=== PATIENT | female | born 1955 | race Caucasian/White ===

== ENCOUNTER 2023-03-19 10:10 | Outpatient (CLI) | payer MEDICARE, OTHER, SELFPAY ==
[2023-03-19 10:42] LABS: Basophils Absolute Auto 0.1 K/mm3 (0.0-0.1); Basophils Percent Auto 0.8 % (0.2-1.2); Eosinophils Absolute Auto 0.1 K/mm3 (0-0.3); Eosinophils Percent Auto 0.8 % (0-4.4); Hematocrit 31.2 % (37.0-47.0); Hemoglobin 8.2 g/dL (12.0-15.0); Immature Granulocyte Absolute 0.05 K/mm3 (0.00-0.031); Immature Granulocyte Percent A 0.5 % (0-0.5); Immature Platelet Fraction Pct 6.6 % (0.9-11.2); Lymphocytes Absolute Auto 1.08 K/mm3 (0.9-3.2); Lymphocytes Percent Auto 11.1 % (18.3-44.2); Mean Corpuscular HGB Conc 26.3 g/dl (32-36); Mean Corpuscular Hemoglobin 17.5 pg (26-34); Mean Corpuscular Volume 66.5 fl (80-100); Mean Platelet Volume 10.4 fl (7.4-10.4); Monocytes Absolute Auto 0.6 K/mm3 (0.1-0.6); Monocytes Percent Auto 6.5 % (2.6-8.5); Neutrophils Absolute Auto 7.8 K/mm3 (1.3-6.7); Neutrophils Percent Auto 80.3 % (45.5-73.1); Platelet Count Result 807 k/mm3 (150-375); Red Blood Count 4.69 M/mm3 (4.2-5.4); Red Cell Distribution Width 17.9 % (11.5-14.5); White Blood Count 9.7 K/mm3 (4.5-10.0)
[2023-03-19 10:43] LABS: Hypochromasia 2+ (NORMAL); Ovalocytes 1+ (NORMAL); Platelet Estimate Increased (Adequate); Schistocytes None Seen (NORMAL)
[2023-03-19 10:44] LABS: Anisocytosis 1+ (NORMAL); Poikilocytosis 1+ (NORMAL)
[2023-03-19 15:22] LABS: Alanine Aminotransferase 35 U/L (6-35); Albumin Level 4.7 g/dL (3.5-5.1); Alkaline Phosphatase 155 U/L (38-126); Anion Gap 11 mmol/L (8-16); Aspartate Amino Transferase 48 U/L (14-36); Bilirubin,Total 0.4 mg/dL (0.2-1.3); Blood Urea Nitrogen 18 mg/dL (7-17); Calcium 9.8 mg/dL (8.4-10.2); Carbon Dioxide 22 mmol/L (22-30); Chloride 104 mmol/L (98-107); Estimated Glomerular Filt Rate > 60; Glucose 107 mg/dL (65-110); Lactate Dehydrogenase 189 U/L (120-246); Potassium 4.9 mmol/L (3.4-5.0); Sodium 137 mmol/L (137-145)
[2023-03-19 16:11] LABS: Iron 21 ug/dL (37-170)
[2023-03-19 16:28] LABS: Folic Acid > 20.0 ng/mL (2.76->20); Percent Iron Saturation 4 % (20-50)
[2023-03-19 16:49] LABS: Ferritin 4.55 ng/mL (11.1-264)
== END 2023-03-19 10:11 | disposition home or self-care (01) ==
LOC: ANHLAB 10:12
PROVIDERS: Visit Provider Internal Medicine Hematology & Oncology
DX: D64.9 Anemia, unspecified (principal)
CPT/HCPCS: 36415; 80053; 82607; 82728; 82746; 83540; 83550; 83615; 85025; 85055

== ENCOUNTER 2023-03-21 00:14 | Day surgery (SDC) | payer MEDICARE, OTHER, SELFPAY ==
[2023-03-12 13:11] VITALS: BMI 19.1
--- NOTE | 2023-03-21 08:16 | P.PNAN_ITS ---
Anes - Initial Pre Proc Eval Procedure: Operation Date: 03/21/23 11:30 Proposed Procedures p Colonoscopy - Reese Morgan MD Date/Time: 03/21/23 08:16 Surgeon: Reese Morgan MD Pre Op Diagnosis: Iron Deficiency Anemia Patient Data Age: 67 Gender: F Height: 1.68 m Weight: 53.8 kg Allergies Allergy/AdvReac Type Severity Reaction Status Date / Time No Known Allergies Allergy Verified 03/21/23 10:29 Home Medications Medication Instructions Recorded Confirmed Type naproxen 220 mg-diphenhydramine 25 1 tablet PO HS PRN other 03/12/23 03/21/23 History mg tablet (Aleve PM) Patient hx anesthesia problems: none Family hx anesthesia problems: none Results Review: All pre-operative results and documents have been reviewed as part of the pre- operative evaluation. [facility] Past Medical History Medical History (Updated 03/21/23 @ 08:17 by Roshan Woodson MD) Anemia Social History Social History Smoking packs per day: 1 Smoking cigarettes per day: 20.0 Years smoked: 20 Smoking pack-years: 20.00 Smoking status: Former smoker Tobacco type: cigarettes Substance use type: does not use Living arrangements: with family Spiritual care concerns: No Anes - Eval Final PreProcedure Day of Procedure 03/21/23 08:16 Patient weight: normal Heart: regular rate and rhythm Lungs: clear to auscultation and normal air movement Airway: Mallampati scale class II Neurological: alert and oriented Last oral intake: >/= 8 hours ASA classification: II Emergent: no Anesthetic plan: proceed Anesthesia type and monitoring: general GIVS Results Review: All pre-operative results and documents have been reviewed as part of the pre- operative evaluation. Informed Consent: The patient's anesthetic plan and its attendant risks and benefits were discussed with the patient/family/POA. Questions were solicited and answers provided to the satisfaction of the patient/family/POA.
[2023-03-21 10:25] VITALS: BP 91/47; PULSE 97; RESP 18; TEMP 36.5; O2SAT 99; BMI 18.6
[2023-03-21] MEDS: LACTATED RINGERS 1,000 ML 150 ML IV CONT (10:40)
--- NOTE | 2023-03-21 11:14 | PM.HPGS ---
History of Present Illness History of Present Illness Consent: Risks, benefits, and alternatives have been discussed and questions answered. Patient agrees to proceed with procedure. Chief complaint: Iron Deficiency Anemia Narrative: Audrey Trent is a 67 year old female Who has been found to be anemic. Her hemoglobin is 8.2 and MCV is only 66. She is also deficient in iron. She does not see blood in her stools. Her last colonoscopy was 15 years ago. Review of Systems Review of Systems: All systems reviewed & are unremarkable except as noted in HPI and below PMFSH Past Medical History Medical History (Updated 03/21/23 @ 11:15 by Reese Morgan MD) Anemia Social History Social History Smoking packs per day: 1 Smoking cigarettes per day: 20.0 Years smoked: 20 Smoking pack-years: 20.00 Smoking status: Former smoker Tobacco type: cigarettes Substance use type: does not use Living arrangements: with family Spiritual care concerns: No Meds Home Medications and Allergies Home Medications Medication Instructions Recorded Confirmed Type naproxen 220 mg-diphenhydramine 25 1 tablet PO HS PRN other 03/12/23 03/21/23 History mg tablet (Aleve PM) Allergies Allergy/AdvReac Type Severity Reaction Status Date / Time No Known Allergies Allergy Verified 03/21/23 10:29 Vital Signs Vital Signs - 24 hr 03/21/23 10:25 Temperature 36.5 C Pulse Rate 97 Respiratory Rate 18 Blood Pressure 91/47 L Pulse Oximetry 99 Oxygen Delivery Room Air Exam Resp: Auscultation: clear to auscultation bilaterally Cardio: Rate: regular rate Rhythm: regular rhythm GI: GI Palp: Yes Soft to palpation and No Tenderness to palpation present (GI) Assessment and Plan Assessment and plan (1) Iron deficiency anemia: Code(s): D50.9 - Iron deficiency anemia, unspecified Status: Acute Assessment and Plan: Colonoscopy with possible biopsy or polypectomy or cautery or injection of substances.
[2023-03-21 11:57] VITALS: BP 98/47; PULSE 87; RESP 20; O2SAT 98
[2023-03-21 12:07] VITALS: BP 91/51; PULSE 83; RESP 19; O2SAT 100
[2023-03-21 12:17] VITALS: BP 104/59; PULSE 86; RESP 18; O2SAT 98
== END 2023-03-21 12:25 | disposition home or self-care (01) ==
PROVIDERS: PCP Family Medicine; Visit Provider Internal Medicine Gastroenterology
PROC: 0DJD8ZZ Inspection of Lower Intestinal Tract, Via Natural or Artificial Opening Endoscopic (ICD-10-PCS; CPT 45378; principal; 2023-03-21 11:30)
DX: Z12.11 Encounter for screening for malignant neoplasm of colon (principal); K64.8 Other hemorrhoids; K57.30 Diverticulosis of large intestine without perforation or abscess without bleeding; D50.9 Iron deficiency anemia, unspecified; Z87.891 Personal history of nicotine dependence
CPT/HCPCS: G0121; J2704; J7120

== ENCOUNTER 2023-03-26 08:56 | Outpatient (CLI) | payer MEDICARE, OTHER, SELFPAY ==
[2023-03-31 16:57] LABS: Exon 14; Gene JAK2; JAK2 V617F Mutation Detected (Not Detected); Mutation Type missense; Specimen Source Blood
== END 2023-03-26 08:57 | disposition home or self-care (01) ==
LOC: ANHLAB 08:59
PROVIDERS: PCP Family Medicine; Visit Provider Internal Medicine
DX: D47.3 Essential (hemorrhagic) thrombocythemia (principal); D64.9 Anemia, unspecified
CPT/HCPCS: 36415; 81270

== ENCOUNTER 2023-04-07 00:31 | Day surgery (SDC) | payer MEDICARE, OTHER, SELFPAY ==
[2023-04-02 11:53] VITALS: BMI 18.6
[2023-04-07 12:50] VITALS: BP 114/89; PULSE 91; RESP 18; TEMP 36.2; O2SAT 94
[2023-04-07] MEDS: LACTATED RINGERS 1,000 ML 150 ML IV CONT (12:58)
--- NOTE | 2023-04-07 13:31 | PM.HPGS ---
History of Present Illness History of Present Illness Consent: Risks, benefits, and alternatives have been discussed and questions answered. Patient agrees to proceed with procedure. Chief complaint: Iron Deficiency Anemia Narrative: Audrey Trent is a 67 year old female With iron deficiency anemia. A recent colonoscopy did not reveal any source for blood loss. Her hemoglobin is 8.2 an MCV is 66. Review of Systems Review of Systems: All systems reviewed & are unremarkable except as noted in HPI and below PMFSH Past Medical History Medical History Anemia Social History Social History Smoking packs per day: 1 Smoking cigarettes per day: 20.0 Years smoked: 20 Smoking pack-years: 20.00 Smoking status: Former smoker Tobacco type: cigarettes Substance use: never Substance use type: does not use Living arrangements: with family Spiritual care concerns: No Meds Home Medications and Allergies Home Medications Medication Instructions Recorded Confirmed Type naproxen 220 mg-diphenhydramine 25 1 tablet PO HS PRN other 03/12/23 04/02/23 History mg tablet (Aleve PM) Allergies Allergy/AdvReac Type Severity Reaction Status Date / Time No Known Allergies Allergy Verified 04/07/23 12:49 Vital Signs Vital Signs - 24 hr 04/07/23 12:50 Temperature 36.2 C L Pulse Rate 91 Respiratory Rate 18 Blood Pressure 114/89 Pulse Oximetry 94 Oxygen Delivery Room Air Exam Const: General: alert Orientation/consciousness: patient oriented x3 Resp: Auscultation: clear to auscultation bilaterally Cardio: Rhythm: regular rhythm GI: GI Palp: Yes Soft to palpation and No Tenderness to palpation present (GI) Neuro: General: patient oriented x3 Assessment and Plan Assessment and plan (1) Iron deficiency anemia: Code(s): D50.9 - Iron deficiency anemia, unspecified Status: Acute Assessment and Plan: EGD with possible biopsy or dilatation or cautery.
--- NOTE | 2023-04-07 13:40 | WPDANESEPPF ---
Anes - Initial Pre Proc Eval Procedure: Operation Date: 04/07/23 13:30 Proposed Procedures p Esophagogastroduodenoscopy - Reese Morgan MD Date/Time: 04/07/23 13:40 Surgeon: Reese Morgan MD Pre Op Diagnosis: Iron Deficiency Anemia Patient Data Age: 67 Gender: F Height: 1.68 m Weight: 53.5 kg Last Vital Signs Temp 36.2 C L 04/07/23 12:50 Pulse 91 04/07/23 12:50 Resp 18 04/07/23 12:50 BP 114/89 04/07/23 12:50 Pulse Ox 94 04/07/23 12:50 O2 Del Method Room Air 04/07/23 12:50 Allergies Allergy/AdvReac Type Severity Reaction Status Date / Time No Known Allergies Allergy Verified 04/07/23 12:49 Home Medications Medication Instructions Recorded Confirmed Type naproxen 220 mg-diphenhydramine 25 1 tablet PO HS PRN other 03/12/23 04/02/23 History mg tablet (Aleve PM) Patient hx anesthesia problems: none Family hx anesthesia problems: none Results Review: All pre-operative results and documents have been reviewed as part of the pre-operative evaluation. [facility] Past Medical History Medical History Anemia Social History Social History Smoking packs per day: 1 Smoking cigarettes per day: 20.0 Years smoked: 20 Smoking pack-years: 20.00 Smoking status: Former smoker Tobacco type: cigarettes Substance use: never Substance use type: does not use Living arrangements: with family Spiritual care concerns: No Anes - Eval Final PreProcedure Day of Procedure 04/07/23 13:40 Patient weight: normal Heart: regular rate and rhythm Lungs: decreased breath sounds Airway: Mallampati scale class II Neurological: alert and oriented Last oral intake: >/= 8 hours ASA classification: II Emergent: no Anesthetic plan: proceed Anesthesia type and monitoring: general GIVS and standard monitoring Results Review: All pre-operative results and documents have been reviewed as part of the pre-operative evaluation. Informed Consent: The patient's anesthetic plan and its attendant risks and benefits were discussed with the patient/family/POA. Questions were solicited and answers provided to the satisfaction of the patient/family/POA.
[2023-04-07 13:57] VITALS: BP 97/51; PULSE 84; RESP 20; O2SAT 99
[2023-04-07 14:07] VITALS: BP 100/53; PULSE 81; RESP 19; O2SAT 98
[2023-04-07 14:17] VITALS: BP 108/57; PULSE 77; RESP 19; O2SAT 97
== END 2023-04-07 14:39 | disposition home or self-care (01) ==
PROVIDERS: PCP Family Medicine; Visit Provider Internal Medicine Gastroenterology
PROC: 0DJ08ZZ Inspection of Upper Intestinal Tract, Via Natural or Artificial Opening Endoscopic (ICD-10-PCS; CPT 43235; principal; 2023-04-07 13:30)
DX: K21.9 Gastro-esophageal reflux disease without esophagitis (principal); D50.9 Iron deficiency anemia, unspecified; Z87.891 Personal history of nicotine dependence
CPT/HCPCS: 43239; 88305; J2704; J7120

== ENCOUNTER 2023-04-08 00:04 | Day surgery (SDC) | payer MEDICARE, OTHER, SELFPAY ==
[2023-04-07 15:43] VITALS: BMI 18.6
--- NOTE | ~2023-04-08 | BM_ITS ---
EXAMINATION: CCL bone marrow asp w bx diag DATE: 04/08/2023 09:26 INDICATION: Thrombocytosis. TECHNIQUE: A time-out was performed to verify the patient's name, date of , and procedure to b e performed. The procedure including the risks, benefits, and alternatives was discussed with the pat ient. Risks discussed included bleeding and infection. The patient understood the risks and agreed to proceed. The skin overlying the left ilium was prepped and draped in usual sterile fashion. Anesth etic was administered with 1% lidocaine subcutaneously. Moderate sedation was achieved with 1 mg Vers ed IV and 50 mcg fentanyl IV. An 11 gauge needle was inserted into the ilium with fluoroscopic mae nce. Bone marrow was aspirated. An 8 gauge needle was then inserted into the ilium with fluoroscopic guidance. A core bone marrow biopsy was obtained. There were no immediate complications. Fluoroscopy exposure time was 0.0 minutes. The total number of images was 12. FINDINGS: Real-time fluoroscopy demonstrates a marker overlying the left posterior superior iliac spi ne. IMPRESSION: 1. Fluoro-guided bone marrow aspiration. 2. Fluoro-guided bone marrow core biopsy. Reviewed, dictated and finalized at location A.
[2023-04-08 07:42] VITALS: BP 115/60; PULSE 83; RESP 16; TEMP 36.9; O2SAT 94; BMI 18.6
[2023-04-08 07:56] LABS: Basophils Absolute Auto 0.1 K/mm3 (0.0-0.1); Basophils Percent Auto 0.9 % (0.2-1.2); Eosinophils Absolute Auto 0.2 K/mm3 (0-0.3); Eosinophils Percent Auto 2.5 % (0-4.4); Hematocrit 37.6 % (37.0-47.0); Hemoglobin 10.3 g/dL (12.0-15.0); Immature Granulocyte Absolute 0.02 K/mm3 (0.00-0.031); Immature Granulocyte Percent A 0.3 % (0-0.5); Lymphocytes Absolute Auto 1.26 K/mm3 (0.9-3.2); Lymphocytes Percent Auto 15.8 % (18.3-44.2); Mean Corpuscular HGB Conc 27.4 g/dl (32-36); Mean Corpuscular Hemoglobin 21.1 pg (26-34); Mean Corpuscular Volume 77.2 fl (80-100); Mean Platelet Volume 9.3 fl (7.4-10.4); Monocytes Absolute Auto 0.6 K/mm3 (0.1-0.6); Monocytes Percent Auto 7.4 % (2.6-8.5); Neutrophils Absolute Auto 5.9 K/mm3 (1.3-6.7); Neutrophils Percent Auto 73.1 % (45.5-73.1); Platelet Count Result 786 k/mm3 (150-375); Red Blood Count 4.87 M/mm3 (4.2-5.4)
[2023-04-08 08:02] LABS: Platelet Estimate Increased (Adequate)
[2023-04-08 08:03] LABS: Anisocytosis 2+ (NORMAL); Hypochromasia 2+ (NORMAL); Ovalocytes 1+ (NORMAL); Schistocytes None Seen (NORMAL); Target Cells 1+ (NORMAL)
[2023-04-08 08:05] LABS: Prothrombin Time 13.9 Seconds (11.1-14.7)
--- NOTE | 2023-04-08 08:49 | P.SEDATION_ITS ---
Moderate Sedation Note-Pt Data Patient Data Diagnosis: Thrombocytosis. Present Complaint: Thrombocytosis. Procedure to be performed/Plan: Fluoro-guided bone marrow biopsy of ilium. Allergies Allergy/AdvReac Type Severity Reaction Status Date / Time No Known Allergies Allergy Verified 04/07/23 15:43 Home Medications Medication Instructions Recorded Confirmed Type No Home Medications 04/07/23 04/07/23 History Sedation/Anesthesia: No previous sedation/anesthesia problems (including family history). [facility] Past Medical History Medical History Anemia Social History Social History Smoking packs per day: 1 Smoking cigarettes per day: 20.0 Years smoked: 20 Smoking pack-years: 20.00 Smoking status: Never smoker Tobacco type: cigarettes Second hand tobacco smoke exposure: No Alcohol intake: never Substance use: never Substance use type: does not use Living arrangements: with family Spiritual care concerns: No Mod Sed Physical Exam Physical Exam Pre Procedural Exam: Normal: Appearance, Lungs, Heart Rate, Heart Rhythm and Abdomen Hours since solid foods: 11 Hours since liquid intake: 10 Mallampati Classification: class 1 Internal Medicine - PN: Obj Da Vital Signs Vital Signs: Vital Signs - 24 hr 04/08/23 07:42 Temperature 36.9 C Pulse Rate 83 Respiratory Rate 16 Blood Pressure 115/60 Pulse Oximetry 94 Oxygen Delivery Room Air Labs 04/08/23 07:39 Labs: Laboratory Results - last 24 hr 04/08/23 07:39 WBC 8.0 RBC 4.87 Hgb 10.3 L Hct 37.6 MCV 77.2 L MCH 21.1 L MCHC 27.4 L RDW TNP Plt Count 786 H MPV 9.3 Immature Gran % (Auto) 0.3 Neut % (Auto) 73.1 Lymph % (Auto) 15.8 L Grimes % (Auto) 7.4 Eos % (Auto) 2.5 Baso % (Auto) 0.9 Lymph # (Auto) 1.26 Grimes # (Auto) 0.6 Eos # (Auto) 0.2 Baso # (Auto) 0.1 Abs Immat Gran (auto) 0.02 Absolute Neuts (auto) 5.9 Absolute Nucleated RBC 0.0 Nucleated RBC % 0.0 Platelet Estimate Increased Hypochromasia 2+ Anisocytosis 2+ Target Cells 1+ Ovalocytes 1+ Schistocytes None seen PT 13.9 INR 1.0 ASA Classification/Sedation ASA Classification/Sedation ASA Class: II Emergent: No Risks: Risks, benefits and alternatives explained and patient/family accepted plan for sedation. Patient re-evaluated immediately prior to sedation.
[2023-04-08 09:22] VITALS: BP 105/60; PULSE 74; RESP 14; TEMP 36.6; O2SAT 94
[2023-04-08 09:30] VITALS: BP 103/57; PULSE 74; RESP 14; O2SAT 92
[2023-04-08 09:45] VITALS: BP 101/57; PULSE 76; RESP 16; O2SAT 93
[2023-04-08 10:00] VITALS: BP 107/52; PULSE 72; RESP 17; O2SAT 93
[2023-04-08 10:15] VITALS: BP 109/60; PULSE 83; RESP 16; O2SAT 92
== END 2023-04-08 10:30 | disposition home or self-care (01) ==
PROVIDERS: PCP Family Medicine; Visit Provider Radiology Diagnostic Radiology
DX: D75.839 Thrombocytosis, unspecified (principal); D50.9 Iron deficiency anemia, unspecified
CPT/HCPCS: 36415; 38222; 85025; 85610; 88184; 88185; 88305; 88311; 88313; J1642; J2250; J3010; J7040

== ENCOUNTER 2023-05-13 12:33 | Outpatient (CLI) | payer MEDICARE, OTHER, SELFPAY ==
--- NOTE | ~2023-05-13 | CT_ITS ---
CT of the Abdomen and Pelvis: Indication: Weight loss Technique: 2.5 mm axial scans were obtained through the abdomen and pelvis following intravenous adm inistration of 100 cc of Omnipaque 350. Dose reduction technique was used on this scan by utilizing a utomated exposure control and iterative reconstruction technique. The dose-length product (DLP) was 2 23.01 mGy-cm. Findings: Scans through the lung bases demonstrate 5.5 mm lingular nodule. The liver, spleen, pancreas, gallbladder, adrenals and kidneys are within normal limits. There are at herosclerotic calcifications of the aorta. No lymphadenopathy. No bowel obstruction or bowel wall thickening. There is no evidence to suggest acute appendicitis. Images through the pelvis were performed. Urinary bladder unremarkable. No adnexal mass evident. Trac e pelvic ascites present. Impression: 5.5 mm lingular nodule. According to Fleischner Society criteria, for a low-risk patient, no further follow-up required. For a high-risk patient, consider 12 month follow-up CT. Trace pelvic ascites, nonspecific. Reviewed, dictated and finalized at location . Impression: 5.5 mm lingular nodule. According to Fleischner Society criteria, for a low-ris k patient, no further follow-up required. For a high-risk patient, consider 12 month follow-up CT. Trace pelvic ascites, nonspecific.
[2023-05-13 12:50] LABS: Estimated Glomerular Filt Rate 32
== END 2023-05-13 12:34 | disposition home or self-care (01) ==
PROVIDERS: PCP Family Medicine; Visit Provider Internal Medicine Gastroenterology
DX: R63.4 Abnormal weight loss (principal); R91.1 Solitary pulmonary nodule; R18.8 Other ascites
CPT/HCPCS: 74177; Q9967

== ENCOUNTER 2024-03-02 10:37 | Outpatient (CLI) | payer MEDICARE, OTHER, SELFPAY ==
--- NOTE | ~2024-03-02 | CT_ITS ---
EXAMINATION: CT soft tissue neck chest w DATE: 03/02/2024 11:21 INDICATION: Paralysis of vocal cords and larynx, unspecified. TECHNIQUE: Computed tomography (CT) of the neck and chest was performed with 75 mL Omnipaque-350 intr avenous contrast. Automated exposure control and iterative reconstruction technique were employed. Th e dose-length product was 477.87 mGy-cm. COMPARISON: CT abdomen and pelvis 05/13/2023 FINDINGS: CT NECK: There are likely changes of ocular lens replacement surgeries. There is an 18 x 15 mm left s upraclavicular lymph node. There is left-sided vocal cord paralysis. There are nodules in the thyroid measuring up to 7 mm, likely not clinically significant. There is mild cervical spondylosis. CT CHEST: There is mild scarring at the lung apices. There is severe emphysema. There is mild atelect asis bilaterally. There is a stable 6 mm nodule in the lingula, likely benign. No pleural effusion. T he heart size is normal. There are coronary artery calcifications. No pericardial effusion. There is a 3.7 x 2.2 x 9.7 cm mass in the anterior mediastinum measuring fluid attenuation. There is lymphaden opathy in the aorticopulmonary window measuring 3.7 x 2.5 cm. The liver demonstrates a nodular surfac e contour, consistent with cirrhosis. There is severe thoracic spondylosis. There is a chronic burst fracture of T11. IMPRESSION: 1. Left supraclavicular and aorticopulmonary window lymphadenopathy, consistent with metastatic disea se versus lymphoma. Ultrasound-guided core biopsy of the left supraclavicular lymph node is recommend ed. 2. 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 3. 9.7 x 3.7 x 2.2 cm cystic mass in the anterior mediastinum, which may be a thymic cyst or venous m alformation. 4. Severe emphysema. 5. Cirrhosis of the liver. Reviewed, dictated and finalized at location A. IMPRESSION: 1. Left supraclavicular and aorticopulmonary window lymphadenopathy, consistent with metastatic disease versus lymphoma. Ultrasound-guided core biopsy of the left supraclavicular lymph node is recommended. 2. Left-sided vocal cord paralysis secondary to aorticopulmonary window lymphad enopathy. 3. 9.7 x 3.7 x 2.2 cm cystic mass in the anterior mediastinum, which may be a t hymic cyst or venous malformation. 4. Severe emphysema. 5. Cirrhosis of the liver.
[2024-03-02 11:07] LABS: Estimated Glomerular Filt Rate 37
== END 2024-03-02 10:38 ==
PROVIDERS: PCP Family Medicine; Visit Provider Otolaryngology
DX: J38.00 Paralysis of vocal cords and larynx, unspecified (principal); R59.0 Localized enlarged lymph nodes; J43.9 Emphysema, unspecified; K74.60 Unspecified cirrhosis of liver; R91.8 Other nonspecific abnormal finding of lung field
CPT/HCPCS: 70491; 71260; Q9967

== ENCOUNTER 2025-01-12 10:27 | Outpatient (CLI) | payer MEDICARE, OTHER, SELFPAY ==
--- NOTE | ~2025-01-12 | XR_ITS ---
Lumbosacral Spine: AP and lateral views Clinical History: Abnormal weight loss Findings: The normal lordotic curve is maintained. The vertebral bodies and posterior elements are i ntact. The intervertebral disc spaces are preserved. There is mild to moderate facet arthropathy at L4-L5 and L5-S1. The sacroiliac joints are normally outlined. Impression: Facet arthropathy, as above. Reviewed, dictated and finalized at location M. Impression: Facet arthropathy, as above.
--- NOTE | ~2025-01-12 | XR_ITS ---
Thoracic spine: Clinical Indication: Weight loss AP and lateral views were performed. Right-sided Mediport in place. Mild compression deformity of T12 present. The intervertebral disc spa yi appear normal. Paravertebral soft tissues appear normal. Impression: Mild T12 compression deformity, age indeterminate. Reviewed, dictated and finalized at [facility]. Impression: Mild T12 compression deformity, age indeterminate.
--- OUTSIDE RECORDS SUMMARY | 2025-01-12 10:49 | XMS_ITS | Encounter Summary ---
Author Organization [facility] Address [address] [place] [address] Care Team Providers Care Assessment Expert Name Role Phone Eduin Ricks MD Primary Care Provider Encounter Details Date Type Department Care Team ([facility] Contact Info) Description 01/06/2025 Orders Only [facility] Oncology and Hematology - Samuel [address] [place] [address] Med Delatorre MD [facility] [employer] [address] [place] [id number] Social History Tobacco Use Types Packs/Day Years Used Date Smoking Tobacco: Former Cigarettes 1 30 0 10/30/1992 - 10/30/2022 Smokeless Tobacco: Never Alcohol Use Standard Drinks/Week Comments Not Currently 0 (1 standard drink = 0.6 oz pur e alcohol) Comments Unknown Sex and Gender Information Value Date Recorded Sex Assigned at Not on file Legal Sex Female 9:49 AM CDT Gender Identity Not on file Sexual Orientation Not on file documented as of this encounter Plan of Treatment Upcoming Encounters Date Type Department Care Team (Late Contact Info) Description 05/18/2025 11:15 AM CDT Office Visit [facility] Oncology and Hematology - Samuel [address] [place] [address] Med Delatorre MD [address] [place] [address] documented as of this encounter Procedures Procedure Name Priority Date/Time Associated Diagnosis Comments BASIC METABOLIC PANEL Routine 01/05/2025 10:28 AM CDT documented in this encounter Results * BASIC METABOLIC PANEL (01/05/2025 10:28 AM CDT) Blood Med Delatorre MD CHEMISTRY ORDERABLES Final Resu lt documented in this encounter Visit Diagnoses Not on filedocumented in this encounter Care Teams Assessment Expert Relationship Specialty Start Date End Date Eduin Ricks MD [address] [place] [id number] PCP - General Family Practice 03/19/23 documented as of this encounter
--- OUTSIDE RECORDS SUMMARY | 2025-01-12 10:49 | XMS_ITS | Encounter Summary ---
Author Organization [facility] Address [address] [place] [address] Care Team Providers Care Service Station Cashier Name Role Phone Unavailable Primary Care Provider Unavailabl e Encounter Details Date Type Department Care Team (Late st Contact Info) Description 04/09/2023 Lab Requisition [facility] - Pathology Lab [address] [place] [address] Anton Nettles MD [address] [place] [address] Illness, unspecified Social History Tobacco Use Types Packs/Day Years Used Date Smoking Tobacco: Never Assessed Comments Unknown Sex and Gender Information Value Date Recorded Sex Assigned at Not on file Legal Sex Female 11:30 AM CDT Gender Identity Not on file Sexual Orientation Not on file documented as of this encounter Plan of Treatment Not on file documented as of this encounter Procedures Procedure Name Priority Date/Time Associated Diagnosis Comments BONE MARROW BIOPSY (STL) Routine 04/08/2023 9:02 AM CDT Illness, unspecified documented in this encounter Results * BONE MARROW BIOPSY (STL) (04/08/2023 9:02 AM CDT) Case Report Bone Marrow Patholog y Report Case: [id number] Authorizing Provider: Anton Nettles MD Collected: 04/08/2023 09:02 AM Ordering Location: [facility] Lab Received: 04/09/2023 01:46 PM Pathologist: Gita Leonard MD Specimens: A) - Bone Marrow Clot, Left bone marrow aspirate B) - Bone Marrow Core, Left posterior hip 04/09/2023 3:43 PM CDT [facility] Final Diagnosis Bone marrow, aspirate, clot section, and core biopsy: - Normocellular marrow with maturing trilineage hematopoiesis and megakaryocytic hyperplasia. - See description. Peripheral blood smear: - Microcytic anemia and thrombocytosis. - See description. 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 04/09/2023 3:43 PM [facility] Peripheral Smear Description RBC: microcytic anemia. WBC: normal in number and morphology. Platelets: increased in number, normal morphology. 04/09/2023 3:43 PM [facility] Bone Marrow Aspirate Differential count (200 cells): 0% blasts, 55% maturing myeloid precursors, 35% erythroid progenitors, 3% monocytes, 3% eosinophils, 3% lymphocytes, 0% plasma cells. Specimen quality: adequate. Spicules: numerous. Trilineage Hematopoiesis: present. Myeloid:Erythroid ratio: normal. Myeloid Maturation: normal. Erythroid Maturation: normal. Megakaryocyte morphology: few hyperlobated forms present.. Storage iron (by special stain): markedly decreased. Sideroblastic iron (by special stain): no ring sideroblasts. 04/09/2023 3:43 PM [facility] Bone Marrow Core Biopsy and Clot Section Description Specimen quality: adequate with 1.7 cm of evaluable marrow. Cellularity: 50 % Trilineage Hematopoiesis: present. Myeloid to Erythroid ratio: normal. Myeloid maturation and localization: normal. Erythroid maturation and localization: normal. Megakaryocyte number: increased. Megakaryocyte distribution: small, loose clusters, and forms with hyperlobation. Lymphoid aggregates: absent. Bone trabeculae: normal. Blood vessels: normal. Plasma cells: normal. Clot section marrow particles: many. Clot section morphology: similar to core biopsy. 04/09/2023 3:43 PM [facility] Flow Cytometry Summary Bone marrow, flow cytometry ([id number]): - No clonal B-cell or increased blast population detected 04/09/2023 3:43 PM [facility] Clinical History Thrombocytosis, CHARLEY-2+ 04/09/2023 3:43 PM [facility] Materials Received Received are 20 slide(s) and 3 block(s) A1, A2, and B1 labeled [id number] along with a copy of the outside pathology report. The materials originate from [address] [place] [address]. All original materials are returned to the referring institution, along with a copy of our final report. 04/09/2023 3:43 PM CDT [facility] Pathologist Location at [facility] 04/09/2023 3:43 PM CDT [facility] Disclaimer The performance characteristics of all immunohistochemical and indirect immunofluorescence stains (if any) cited in this report were determined by the Histopathology Laboratory of [facility]. Some of these tests were developed by our own laboratory and have not been cleared or approved by the US Food and Drug Administration. The FDA does not require this test to go through premarket FDA review. These tests are used for clinical purposes. They should not be regarded as investigational or for research. This laboratory is certified under the Clinical Laboratory Improvement Amendments (CLIA) as qualified to perform high complexity clinical laboratory testing. This case has been personally reviewed and interpreted by the attending (teaching) pathologist. 04/09/2023 3:43 PM CDT [facility] Embedded Images 04/09/2023 3:43 PM CDT [facility] Pathology/Cytology BONE MARROW SPECIMEN / Unknown 04/08/2023 9:02 AM CDT 04/09/2023 1:46 PM CDT Miscellaneous samples (specimen) BONE MARROW SPECIMEN / Unknown 04/08/2023 9:02 AM CDT 04/09/2023 2:03 PM CDT us Anton Nettles MD LAB - PATHOLOGY/CYTOLOGY ORDERAB LES Final Result [facility] [address] [place] [address], [facility] [phone] documented in this encounter Visit Diagnoses Diagnosis Illness, unspecified documented in this encounter
--- OUTSIDE RECORDS SUMMARY | 2025-01-12 10:49 | XMS_ITS | Clinical Summary ---
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 Gender Identity Not on file Sexual Orientation Not on file Plan of Treatment Health Maintenance Due Date Last Done Comments Colorectal Cancer Screening Colonoscopy (10 Years) 1954 Hepatitis C 1972 DTaP, Tdap and Td Vaccines ( 1 - Tdap) 1973 Mammogram Screening 1994 Pneumococcal Vaccine: 50+ Ye ars (1 of 1 - PCV) 2004 Zoster Vaccines (1 of 2) 2004 Dexa Scan (General) 2019 COVID-19 Vaccine (2023-2 5 season) 2024 RSV Immunization or 60+ Years (1 - 1-dose 75+ series) 2029 Meningococcal B Vaccine Aged Out No l onger eligible based on patient's age to complete this topic Meningococcal Vaccine Aged Out No kd shobha eligible based on patient's age to complete this topic RSV Immunizations Under 20 Months Aged Out No longer eligible based on patient's age to complete this topic
--- OUTSIDE RECORDS SUMMARY | 2025-01-12 10:49 | XMS_ITS | Clinical Summary ---
Author Organization [facility] Address [address] [place] [address] Care Team Providers Care Hull Line Crew Member Name Role Phone Unavailable Primary Care Provider Unavailabl e Source Comments [facility],non-owned Affiliates and Associated Physician Practices is amultiple site organization consisting of ambulatory clinics and hospital sitesin [place], [place], [place]. This disclosure is being madepursuant to the Care Everywhere program and may not contain all information available regarding this patient. Last updated 18.[facility] [employer] Social History Tobacco Use Types Packs/Day Years Used Date Smoking Tobacco: Never Assessed Comments Unknown Sex and Gender Information Value Date Recorded Sex Assigned at Not on file Legal Sex Female 11:30 AM CDT Gender Identity Not on file Sexual Orientation Not on file Plan of Treatment Health Maintenance Due Date Last Done Comments BONE DENSITY TESTING 1954 COLOGUARD (AGES 45-75) - COL ON CA SCREENING 1954 COLON MONITORING 1954 COLONOSCOPY - COLON CA SCREENING 1954 CT COLONOGRAPHY - COLON CA SCREENING 1954 Colorectal Cancer Screening 1954 FIT - COLON CA SCREENING 1954 FLEX SIG - COLON CA SCREENING 1954 LIPID TESTING 1954 MAMMOGRAM 1954 MEDICARE AWV 12 MONTHS 1954 HEPATITIS C SCREENING 09/29/1972 DTAP/TDAP/TD VACCINES (1 - Tdap) 1973 PNEUMOCOCCAL VACCINE 50+ (1 of 1 - PCV) 2004 ZOSTER VACCINE (1 of 2) 2004 COVID-19 VACCINE (1 - 2023-2 5 season) 2024 DEPRESSION SCREENING 09/01/2024 INFLUENZA VACCINE (Season Ended) 2025 Respiratory Syncytial Virus (RSV) Vaccine Pt: or over 60 yrs (1 - 1-dose 75+ series) 2029 HEPATITIS B VACCINE Aged Out No longe r eligible based on patient's age to complete this topic HIB VACCINE Aged Out No longer eligi ble based on patient's age to complete this topic HPV VACCINE Aged Out No longer eligi ble based on patient's age to complete this topic MENINGOCOCCAL (Group B) VACC INE SHARED DECISION-MAKING Aged Out No longer eligibl e based on patient's age to complete this topic MENINGOCOCCAL GROUPS A/C/Y/W VACCINE Aged Out No longer eligible b ased on patient's age to complete this topic Insurance MEDICARE MEDICARE SUPPLEMENT PAYOR GENERIC MEDICARE
--- OUTSIDE RECORDS SUMMARY | 2025-01-12 10:49 | XMS_ITS | Encounter Summary ---
Author Organization [facility] Address [address] [place] [address] Care Team Providers Care Pie Maker Name Role Phone Unavailable Primary Care Provider Unavailabl e Encounter Details Date Type Department Care Team (Late st Contact Info) Description 04/10/2023 Lab Requisition [facility] - Pathology Lab [address] [place] [address] Anton Nettles MD [address] [place] [address] Illness, unspecified Social History Tobacco [...] on file documented as of this encounter Visit Diagnoses Diagnosis Illness, unspecified documented in this encounter
--- OUTSIDE RECORDS SUMMARY | 2025-01-12 10:49 | XMS_ITS | Encounter Summary ---
Author Organization [facility] Address [address] [place] [address] Care Team Providers Care Large Animal Veterinarian Name Role Phone Unavailable Primary Care Provider Unavailabl e Encounter Details Date Type Department Care Team (Late st Contact Info) Description 04/08/2023 Lab Requisition [facility] - Pathology Lab [address] [place] [address] Anton Nettles MD [address] [place] [address] Thrombocytosis, unspecified Social History Tobacco Use Types Packs/Day [...] Procedure Name Priority Date/Time Associated Diagnosis Comments FLOW CYTOMETRY BONE MARROW Routine 04/08/2023 9:02 AM CDT Thrombocytosis, unspecified documented in this encounter Results * FLOW CYTOMETRY BONE MARROW (04/08/2023 9:02 AM CDT) Case Report Flow Cytometry Case: [id number] Authorizing Provider: Anton Nettles MD Collected: 04/08/2023 09:02 AM Ordering Location: [facility] Pathology Lab Received: 04/08/2023 11:43 AM Pathologist: Gita Leonard MD Specimen: Bone Marrow 04/08/2023 1:33 PM CDT [facility] Final Diagnosis Bone marrow, flow cytometry: - No clonal B-cell or increased blast population detected 04/08/2023 1:33 PM CDT [facility] Flow Cytometry Interpretation The bone marrow specimen has a viability of 87%. The lymphocyte, dim CD45, monocyte, and granulocyte bradford are normal in relative proportion. Within the lymphocyte gate, there is no monotypic B-cell population identified (kappa: lambda ratio = 4:1). There is no expanded T-cell population seen. By CD34, 4% of all events analyzed are blasts. A bone marrow aspirate smear prepared from the flow cytometry specimen is reviewed for quality assurance representative purposes. 04/08/2023 1:33 PM [facility] Flow Cytometry Results Differential Result Comment Flow Cell Count /uL 102,400 Total Viability % 87.0 Lymphocytes % 15 Dim CD45 Region % 11 Monocytes % 9 Granulocytes % 65 04/08/2023 1:33 PM [facility] Reason for test Thrombocytosis, unspecified 04/08/2023 1:33 PM [facility] Client Specimen ID # [id number] 04/08/2023 1:33 PM [facility] Number of markers 10 were performed. A-2 Flow CD10 A-3 Flow CD13 A-5 Flow CD20 A-1 Flow CD5 A-4 Flow CD19 A-6 Flow CD33 A-7 Flow CD34 A-8 Flow CD45 A-9 [place]+CD19+ A-10 Lambda+CD19+ 04/08/2023 1:33 PM [facility] Pathologist Location at [facility] 04/08/2023 1:33 PM [facility] Disclaimer Test performed at [facility], [address] [place] [address], [id number]. *The established laboratory minimum viability is 70%. Values below the minimum may result in the failure to find an abnormal population of cells. This test was developed and its performance characteristics determined by the Flow Cytometry Laboratory. It has not been cleared by the [place] Food and Drug Administration (FDA). The FDA has determined that such clearance or approval is not necessary. This test is used for clinical purposes. It should not be regarded as investigational or for research. This laboratory is regulated under the Clinical Laboratory Improvement Amendments of 1998 (CLIA) as a qualified to perform high complexity clinical testing. 04/08/2023 1:33 PM CDT [facility] Embedded Images 3 1:33 PM CDT [facility] Pathology/Cytolo gy BONE MARROW SPECIMEN / Unknown 04/08/2023 9:02 AM CDT 04/08/2023 11:43 AM CDT us Anton Nettles MD LAB - PATHOLOGY/CYTOLOGY ORDERAB LES Final Result [facility] [address] [phone] documented in this encounter Visit Diagnoses Diagnosis Thrombocytosis, unspecified documented in this encounter
--- OUTSIDE RECORDS SUMMARY | 2025-01-12 10:49 | XMS_ITS | Encounter Summary ---
Author Organization [facility] Address [address] [place] [address] Care Team Providers Care Product Marketing Intern Name Role Phone Eduin Ricks MD Primary Care Provider Encounter Details Date Type Department Care Team ([facility] Contact Info) Description 01/05/2025 Orders Only [facility] Oncology and Hematology - Samuel [address] [place] [address] Med Delatorre MD [address] [place], [place] [address] [place] [phone] Social History Tobacco Use Types Packs/Day [...] Description 05/18/2025 11:15 AM CDT Office Visit [facility] Oncology and Hematology - Samuel [address] [place] [address] Med Delatorre MD [address] [place] [address] documented as of this encounter Procedures Procedure Name Priority Date/Time Associated Diagnosis Comments CBC WITH DIFFERENTIAL Routine 01/05/2025 4:01 PM CDT documented in this encounter Results * CBC WITH DIFFERENTIAL (01/05/2025 4:01 PM CDT) Blood us Med Delatorre MD HEMATOLOGY ORDERABLES Final Res ult documented in this encounter Visit Diagnoses Not on filedocumented in this encounter Care Teams Product Marketing Intern Relationship Specialty Start Date End Date Eduin Ricks MD [address] [place] [phone] PCP - General Family Practice 03/19/23 documented as of this encounter
--- OUTSIDE RECORDS SUMMARY | 2025-01-12 10:49 | XMS_ITS | Clinical Summary ---
Author Organization [facility] Address [address] [place] [address] Care Team Providers Care Service Coordinator Name Role Phone Eduin Ricks MD Primary Care Provider Allergies No known active allergies Medications ferrous sulfate 325 mg (65 mg iron) tablet Take 325 mg by mouth daily. Active aspirin (ECOTRIN EC) 81 mg Tablet, Delayed Release (E.C.) Take 81 mg by mouth daily. Active omeprazole (PriLOSEC) 20 mg Capsule, Delayed Release(E.C.) Take 20 mg by mouth 1 time daily as needed for Other (See Comment). Active cyanocobalamin (VITAMIN B-12) 500 mcg tablet Take 500 mcg by mouth daily. Active ascorbic acid (VITAMIN C) 500 mg Tablet, Chewable Take 500 mg by mouth every other day. Active folic acid (FOLVITE) 400 mcg Tablet Take 800 mcg by mouth daily. Active acetaminophen (TYLENOL) 500 mg tablet Take 500 mg by mouth daily. Active multivitamin (DAILY-MARILEE) tablet Take 1 Tablet by mouth daily. Active diphenhydrAMIN E12.5 mg/5 mL-viscous lidocaine-Maal ox 1:1:1 (MAGIC MOUTHWASH) oral suspension compound Take 5 mL by mouth. Active hydroxyurea (HYDREA) 500 mg capsule Take 500 mg by mouth daily. Active cholecalcifero l (VITAMIN D3) 10 mcg/mL (400 unit/mL) Drops Take 1 Tablet by mouth daily. Active biotin 1,000 mcg Tablet, Chewable Take 1 Tablet by mouth late in the day. Active albuterol sulfate HFA 90 mcg/actuation aerosol inhaler Take 2 Puffs by inhalation see administration instructions. Active Active Problems Problem Noted Date Diagnosed Date Essential thrombocythemia 04/01/2023 Encounters Date Type Department Care Team Description 01/06/2025 Orders Only [facility] Oncology and Hematology - Samuel [address] [place] [address] Med Delatorre MD 01/05/2025 11:45 AM CDT Office Visit [facility] Oncology and Hematology - Samuel [address] [place] [address] Med Delatorre MD Essential thrombocythemia (CMS/HCC) (Primary Dx) 01/05/2025 Orders Only [facility] Oncology and Hematology - Samuel [address] [place] [address] Med Delatorre MD 11/17/2024 External Device Data [facility] ABSTRACTION Provider, Abstract 11/06/2024 External Device Data [facility] ABSTRACTION Provider, Abstract 11/05/2024 External Device Data [facility] ABSTRACTION Provider, Abstract 11/02/2024 External Device Data [facility] ABSTRACTION Provider, Abstract 10/19/2024 External Device Data ST[facility] ABSTRACTION Provider, Abstract from Last 3 Months Family History Relation Name Status Comments Brother 1 Alive Brother 2 Alive Daughter Alive Father Alive Mother Sister Alive Son Alive Social History Tobacco Use Types Packs/Day Years Used Date Smoking Tobacco: Former Cigarettes 1 30 0 10/30/1992 - 10/30/2022 Smokeless Tobacco: Never Tobacco Cessation:Counseling Given: Not Answered Alcohol Use Standard Drinks/Week Comments Not Currently 0 (1 standard drink = 0.6 oz pur e alcohol) Comments Unknown Sex and Gender Information Value Date Recorded Sex Assigned at Not on file Legal Sex Female 9:49 AM CDT Gender Identity Not on file Sexual Orientation Not on file Last Filed Vital Signs Vital Sign Reading Time Taken Comments Blood Pressure 110/68 01/05/2025 11:07 AM CDT Pulse 95 01/05/2025 11:07 AM CDT Temperature 36.8 C (98.2 F) 01/05/2025 11:07 AM CDT Respiratory Rate 15 01/05/2025 11:07 AM CDT Oxygen Saturation 90% 01/05/2025 11:07 AM CDT Inhaled Oxygen Concentration - - Weight 52.9 kg (116 lb 9.6 oz) 01/05/2025 11:07 AM CDT Height 167.6 cm (5' 6 ) 03/19/2023 9:15 AM CDT Body Mass Index 18.82 03/19/2023 9:15 AM CDT Plan of Treatment Upcoming Encounters Date Type Department Care Team (Late st Contact Info) Description 05/18/2025 11:15 AM CDT Office Visit [facility] Oncology and Hematology [facility] [address] [facility] [address] [place] [address] Med Delatorre MD [address] [place] [address] Health Maintenance Due Date Last Done Comments DTAP/TDAP/TD VACCINES (1 - Tdap) 1973 FIT-DNA Q 3 years 1999 FIT/FOBT Q 1 year 1999 Flex Sig/CT Colonography Q 5 years 1999 Lung Cancer Screening 2004 PNEUMOCOCCAL VACCINE 50+ YEA RS (1 of 1 - PCV) 2004 ZOSTER VACCINE (1 of 2) 2004 INFLUENZA VACCINE (#1) 2024 BREAST CANCER SCREENING 04/14/2025 04/14/2024, 04/14 OSTEOPOROSIS SCREENING 05/29/2028 05/29/2023 RSV VACCINE (60+ or ) (1 - 1-dose 75+ series) 2029 COLORECTAL SCREENING 03/21/2033 03/21/2023, 03/21/20 23 Colorectal Cancer Screening 03/21/2033 Procedures Procedure Name Priority Date/Time Associated Diagnosis Comments CBC WITH DIFFERENTIAL Routine 01/05/2025 4:01 PM CDT BASIC METABOLIC PANEL Routine 01/05/2025 10:28 AM CDT from Last 3 Months Results * CBC WITH DIFFERENTIAL (01/05/2025 4:01 PM CDT) Blood us Med Delatorre MD HEMATOLOGY ORDERABLES Final Res ult * BASIC METABOLIC PANEL (01/05/2025 10:28 AM CDT) Blood us Med Delatorre MD CHEMISTRY ORDERABLES Final Resu lt from Last 3 Months Insurance [facility] MEDICARE PART A AND B Care Teams Service Coordinator Relationship Specialty Start Date End Date Eduin Ricks MD [address] [place] [phone] PCP - General Family Practice 03/19/23
--- OUTSIDE RECORDS SUMMARY | 2025-01-12 10:50 | XMS_ITS | Referral Summary ---
Author Organization [facility] Address [address] [place] [id number] Care Team Providers Care Test Fixture Designer Name Role Phone Eduin Ricks MD Primary Care Provider [phone] Naty Whitt MD Unavailable Fly Lau MD Unavailable [phone] Perri Cameron MD Unavailable [phone] Encounters Date Type Department Care Team Description 12/31/2024 9:45 AM CDT Office Visit [facility] Oncology [address] [place] [phone] Taty Bell NP Cancer of lower lobe of left lung (HCC) (Primary Dx); Regional lymph node metastasis present (HCC); Hoarseness of voice; Meningioma (HCC) 12/31/2024 8:45 AM CDT Clinical Support [facility] at [address] [place] [address] Cancer of lower lobe of left lung (HCC); Regional lymph node metastasis present (HCC) 12/31/2024 10:15 AM CDT Infusion [facility] at [address] [place] [address] Regional lymph node metastasis present (HCC) (Primary Dx); Cancer of lower lobe of left lung (HCC) 12/31/2024 7:26 AM CDT - 12/31/2024 11:59 PM CDT Hospital Encounter [facility] [address] [place] [address] Cancer of lower lobe of left lung (HCC); Regional lymph node metastasis present (HCC) Discharge Disposition: Discharge to home or self care 12/08/2024 9:20 AM CDT Therapy [facility] Otolaryngology [address]th [place] [address] [place] [address] Andie South, AGUSTIN Unilateral vocal fold paralysis (Primary Dx); Hoarseness 12/08/2024 9:20 AM CDT Office Visit [facility] ([facility]) - [facility] ENT [address] [place] [address] [place] [address] Tomasz Gallegos MD 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); Hoarseness of voice 12/03/2024 9:45 AM CDT Office Visit [facility] Oncology [address] [place] [address] Taty Bell NP Cancer of lower lobe of left lung (HCC) (Primary Dx); Regional lymph node metastasis present (HCC); Hoarseness of voice 12/03/2024 8:45 AM CDT Clinical Support [facility] at [facility] [address] [facility] [address] [place] [address] Cancer of lower lobe of left lung (HCC); Regional lymph node metastasis present (HCC) 12/03/2024 10:15 AM CDT Infusion [facility] at [facility] [address] [place] [address] Regional lymph node metastasis present (HCC) (Primary Dx); Cancer of lower lobe of left lung (HCC) 11/10/2024 9:20 AM CDT Therapy [facility] Otolaryngology [facility] [facility] [facility] [address] [place] [address] [place] [address] Andie South, CHIEF SCIENTIST Unilateral vocal fold paralysis (Primary Dx) 11/10/2024 9:20 AM CDT Office Visit [facility] ([facility] [address] [facility] [address] [place] [address] [place] [id number] Tomasz Gallegos MD 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) 11/05/2024 9:40 AM HEALTH AND SAFETY SPECIALIST Office Visit [facility] Oncology [address] [place] [address] Naty Whitt MD Cancer of lower lobe of left lung (HCC) (Primary Dx); Regional lymph node metastasis present (HCC); Hoarseness of voice; Essential thrombocytosis (HCC); Meningioma (HCC) 11/05/2024 8:45 AM HEALTH AND SAFETY SPECIALIST Clinical Support [facility] at [facility] [address] [place] [address] Cancer of lower lobe of left lung (HCC); Regional lymph node metastasis present (HCC) 11/05/2024 10:15 AM HEALTH AND SAFETY SPECIALIST Infusion [facility] at [facility] [address] [place] [address] Regional lymph node metastasis present (HCC) (Primary Dx); Cancer of lower lobe of left lung (HCC) 11/01/2024 Telephone [facility] Oncology [address] [place] [address] Mare Bowen RN 10/30/2024 11:32 AM HEALTH AND SAFETY SPECIALIST - 10/30/2024 11:59 PM HEALTH AND SAFETY SPECIALIST Hospital Encounter [facility] [address] [place] [address] Cancer of lower lobe of left lung (HCC); Regional lymph node metastasis present (HCC) Discharge Disposition: Discharge to home or self care 10/26/2024 8:42 AM HEALTH AND SAFETY SPECIALIST - 10/27/2024 11:50 AM HEALTH AND SAFETY SPECIALIST Hospital Encounter [address] [address] Tomasz Gallegos MD Unilateral complete paralysis of vocal cord [J38.01] (Primary Dx); Hoarseness of voice [R49.0] Discharge Disposition: Discharge to home or self care 10/26/2024 10:45 AM HEALTH AND SAFETY SPECIALIST - 10/26/2024 1:35 PM HEALTH AND SAFETY SPECIALIST Surgery [facility] Operating [facility] ([facility]) [address] [place] [address] Tomasz Gallegos MD THYROPLASTY 10/26/2024 10:27 AM HEALTH AND SAFETY SPECIALIST Anesthesia Event [facility] Operating Room [facility] ([facility]) [address] [place] [address] Nacho Welsh MD Jablonski, Melody A., NP 10/22/2024 8:45 AM HEALTH AND SAFETY SPECIALIST Clinical Support [facility] [address] [facility] [place] [address] Cancer of lower lobe of left lung (HCC); Regional lymph node metastasis present (HCC) 10/22/2024 10:15 AM HEALTH AND SAFETY SPECIALIST Infusion [facility] [address] [facility] [place] [phone] Regional lymph node metastasis present (HCC) (Primary Dx); Cancer of lower lobe of left lung (HCC) 10/22/2024 9:45 AM HEALTH AND SAFETY SPECIALIST Office Visit [facility] Oncology [address] [place] [phone] Taty Bell NP Cancer of lower lobe of left lung (HCC) (Primary Dx); Regional lymph node metastasis present (HCC); Hoarseness of voice 10/22/2024 6:34 AM HEALTH AND SAFETY SPECIALIST - 10/22/2024 11:59 PM HEALTH AND SAFETY SPECIALIST Hospital Encounter [facility] [address] [place] [address] Cancer of lower lobe of left lung (HCC); Regional lymph node metastasis present (HCC) Discharge Disposition: Discharge to home or self care 10/18/2024 Orders Only [facility] Oncology [address] [facility] [facility] [address] [place] [phone] Veronica Roberson [facility] from Last 3 Months Allergies No known active allergies Medications ferrous sulfate 325 mg (65 mg of elemental iron) tabletIndication s:Iron Deficiency Anemia Take 1 tablet (325 mg total) by mouth every evening Active hydroxyurea (HYDREA) 500 mg capsuleIndicatio ns:Blood mutation- CHARLEY 2 Take 1 capsule (500 mg total) by mouth every morning Active omeprazole (PriLOSEC) 20 mg capsuleIndicatio ns:Stress Ulcer Prophylaxis Take 1 capsule (20 mg total) by mouth daily as needed (GERD) Active acetaminophen (TYLENOL) 500 mg tabletIndication s:Pain Take 1 tablet (500 mg total) by mouth every 4 (four) hours as needed for pain Active multivitamin tabletIndication s:Vitamin Deficiency Prevention Take 1 tablet by mouth every other day Active ascorbic acid 500 mg tablet,chewableI ndications:Vitam in C Deficiency Take 1 tablet/chew tab (500 mg total) by mouth every 48 hours Active biotin 1,000 mcg tablet,chewableI ndications:Bioti n Deficiency Take 1 tablet by mouth every evening Active folic acid (FOLVITE) 800 mcg tabletIndication s:Folate Deficiency Take 1 tablet (800 mcg total) by mouth every evening Active UNABLE TO FINDIndications: Supplement Take 1 each by mouth every morning Med Name: Prevagen Active lidocaine-priloc elle (EMLA) creamIndications :Administration of Local Anesthesia Apply a dime size amount of cream to port and cover with plastic wrap 1 hour before needle insertion 30 g 2 4 Active prochlorperazine (COMPAZINE) 10 mg tablet Take 1 tablet (10 mg total) by mouth every 6 (six) hours as needed for nausea 30 tablet 2 4 Active Additional Information Patient taking differently:10 mg oral Every 6 hours PRN, nausea,Indications: Cancer Chemotherapy-Induced Nausea and Vomiting, Informant: Self, Reported on 10/26/2024 ondansetron (ZOFRAN) 8 mg tablet Take 1 tablet (8 mg total) by mouth every 8 (eight) hours as needed for nausea or vomiting 20 tablet 2 4 Active senna-docusate (PERICOLACE) 8.6-50 mg Take 2 tablets by mouth 2 (two) times a day 4 Active polyethylene glycol (MIRALAX) 17 gram packetIndication s:constipation Take 1 packet (17 g total) by mouth daily 4 Active Additional Information Patient taking differently:17 g oralDaily PRN, constipation, Indications: constipation, Informant: Self, Reported on 10/26/2024 albuterol HFA (PROVENTIL HFA,VENTOLIN HFA,PROAIR HFA) 90 mcg/actuation inhalerIndicatio ns:Acute Asthma Attack Inhale 2 puffs every 4 (four) hours as needed for wheezing or shortness of breath Uses a few times a week 4 Active cholecalciferol, vitamin D3, (VITAMIN D3 ORAL)Indications :Supplement Take 1 tablet by mouth every evening Active acetaminophen (TYLENOL) 325 mg tablet Take 2 tablets (650 mg total) by mouth every 6 (six) hours 5 Active ibuprofen (ADVIL,MOTRIN) 600 mg tablet Take 1 tablet (600 mg total) by mouth every 6 (six) hours as needed for pain 5 Active oxyCODONE (ROXICODONE) 5 mg immediate release tabletIndication s:Pain Take 1 tablet (5 mg total) by mouth every 4 (four) hours as needed for pain for up to 5 doses 5 tablet 5 Active Active Problems Patient Care Coordination No te Formatting of this note migh t be different from the original. Referring provider: Dr. Ortiz Keith Ms. Audrey Trent is a 68-year-old with lymphadenopathy. She initially presented with hoarseness and concerned for paralyzed vocal cords. On 03/02/2024 the patient underwent a CT of the neck and chest with contrast which noted left supraclavicular and AP window lymphadenopathy, consistent with metastatic disease versus lymphoma. 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 There was a 9.7 x 3.7 x 2.2 cm cystic mass in the anterior mediastinum which may be a thymic cyst or venous malformation. There was severe emphysema. There was cirrhosis of the liver. Patient is a former smoker with a 30 pack year smoking history. Patient presents today for further surgical evaluation. 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 Social History Tobacco Use Types Packs/Day Years Used Date Smoking Tobacco: Former Cigarettes 1 50.2 1 973 - 10/2022 Passive Smoke Exposure: Never Smokeless Tobacco: Never Tobacco Cessation:Counseling Given: Not Answered AUDIT-C Answer Date Recorded Q1: How often do you have a drink containing alcohol? Never 10/26/2024 Q2: How many drinks containi ng alcohol do you have on a typical day when you are drinking? Patient does not drink Q3: How often do you have si x or more drinks on one occasion? Never 10/26/2024 Personal Safety Answer Date Recorded Have you ever been in or are you currently in a harmful physical or emotional relationship or is someone making you feel afraid or unsafe? Denies 10/26/2024 Comments No Sex and Gender Information Value Date Recorded Sex Assigned at Not on file Legal Sex Female 11:26 AM CDT Gender Identity Not on file Sexual Orientation Not on file Last Filed Vital Signs Vital Sign Reading Time Taken Comments Blood Pressure 107/70 12/31/2024 9:26 AM CDT Pulse 94 12/31/2024 9:26 AM CDT Temperature 36.3 C (97.4 F) 12/31/2024 9:26 AM CDT Respiratory Rate 18 12/31/2024 9:26 AM CDT Oxygen Saturation 95% 12/31/2024 9:26 AM CDT Inhaled Oxygen Concentration - - Weight 51.8 kg (114 lb 3.2 oz) 12/31/2024 9:26 A M CDT Height 165.1 cm (5' 5 ) 10/26/2024 9:10 AM HEALTH AND SAFETY SPECIALIST Body Mass Index 19 10/26/2024 9:10 AM HEALTH AND SAFETY SPECIALIST Plan of Treatment Scheduled Procedures Name Priority Associated Diagnoses Date/Ti me COLONOSCOPY Regional lymph node metastasis present (HCC) Medical Devices Implanted Type Area Bleach Mixer Device Identifier Shelf Expiration Date Model / Serial / Lot [employer] Excela Low Porfile Power Port 8fr 1.6mm 1 Lumen [id number] - [id number] Implanted:Qty: 1 on 05/14/2024 at [facility] [employer] 01/14/2029 [id number] / / [id number] Procedures Procedure Name Priority Date/Time Associated Diagnosis Comments EGFR STAT 12/31/2024 8:48 AM CDT Cancer of lower lobe of left lung (HCC) Regional lymph node metastasis present (HCC) DIFFERENTIAL AUTO Routine 12/31/2024 8:4 8 AM CDT Cancer of lower lobe of left lung (HCC) Regional lymph node metastasis present (HCC) CBC WITH AUTO DIFFERENTIAL Routine 12/31/2024 8:48 AM CDT Cancer of lower lobe of left lung (HCC) Regional lymph node metastasis present (HCC) COMPREHENSIVE METABOLIC PANEL STAT 12/31/2024 8:48 AM CDT Cancer of lower lobe of left lung (HCC) Regional lymph node metastasis present (HCC) TSH Routine 12/31/2024 8:48 AM CDT Cancer of lower lobe of left lung (HCC) Regional lymph node metastasis present (HCC) CT CHEST ABDOMEN PELVIS W CONTRAST Schedule KEILY, Read KEILY (Appt Today, Awaiting Results) 12/31/2024 7:45 AM CDT Cancer of lower lobe of left lung (HCC) Regional lymph node metastasis present (HCC) EGFR STAT 12/03/2024 8:42 AM CDT Cancer of lower lobe of left lung (HCC) Regional lymph node metastasis present (HCC) DIFFERENTIAL AUTO Routine 12/03/2024 8:4 2 AM CDT Cancer of lower lobe of left lung (HCC) Regional lymph node metastasis present (HCC) CBC WITH AUTO DIFFERENTIAL Routine 12/03/2024 8:42 AM CDT Cancer of lower lobe of left lung (HCC) Regional lymph node metastasis present (HCC) COMPREHENSIVE METABOLIC PANEL STAT 12/03/2024 8:42 AM CDT Cancer of lower lobe of left lung (HCC) Regional lymph node metastasis present (HCC) EGFR STAT 11/05/2024 8:50 AM HEALTH AND SAFETY SPECIALIST Cancer of lower lobe of left lung (HCC) Regional lymph node metastasis present (HCC) DIFFERENTIAL AUTO Routine 11/05/2024 8:5 0 AM HEALTH AND SAFETY SPECIALIST Cancer of lower lobe of left lung (HCC) Regional lymph node metastasis present (HCC) CBC WITH AUTO DIFFERENTIAL Routine 11/05/2024 8:50 AM HEALTH AND SAFETY SPECIALIST Cancer of lower lobe of left lung (HCC) Regional lymph node metastasis present (HCC) COMPREHENSIVE METABOLIC PANEL STAT 11/05/2024 8:50 AM HEALTH AND SAFETY SPECIALIST Cancer of lower lobe of left lung (HCC) Regional lymph node metastasis present (HCC) MRI BRAIN W WO CONTRAST Schedule KEILY, Read Routine (Patient lives out of area) 10/30/2024 1:21 PM HEALTH AND SAFETY SPECIALIST Cancer of lower lobe of left lung (HCC) Regional lymph node metastasis present (HCC) THYROPLASTY 10/26/2024 10:30 AM HEALTH AND SAFETY SPECIALIST Unilateral complete paralysis of vocal cord Special Needs standard thyroplasty setup. flex scope. silastic. EGFR STAT 10/22/2024 9:07 AM HEALTH AND SAFETY SPECIALIST Cancer of lower lobe of left lung (HCC) Regional lymph node metastasis present (HCC) DIFFERENTIAL AUTO Routine 10/22/2024 9:0 7 AM HEALTH AND SAFETY SPECIALIST Cancer of lower lobe of left lung (HCC) Regional lymph node metastasis present (HCC) CBC WITH AUTO DIFFERENTIAL Routine 10/22/2024 9:07 AM HEALTH AND SAFETY SPECIALIST Cancer of lower lobe of left lung (HCC) Regional lymph node metastasis present (HCC) COMPREHENSIVE METABOLIC PANEL STAT 10/22/2024 9:07 AM HEALTH AND SAFETY SPECIALIST Cancer of lower lobe of left lung (HCC) Regional lymph node metastasis present (HCC) CT CHEST ABDOMEN PELVIS W CONTRAST Schedule KEILY, Read KEILY (Appt Today, Awaiting Results) 10/22/2024 6:57 AM HEALTH AND SAFETY SPECIALIST Cancer of lower lobe of left lung (HCC) Regional lymph node metastasis present (HCC) DIAGNOSTIC MAMMOGRAM BILATERAL W JAYDE Schedule Routine, Read Routine (OP Routine) 04/14/2024 3:44 PM CDT Regional lymph node metastasis present (HCC) Cancer with unknown primary site (HCC) from Last 3 Months or Most Recently Relevant to Health Maintenance Results * eGFR (12/31/2024 8:48 AM CDT) eGFR >90 >=60 mL/min/1. 73 m2 Comment: Interpretive Data Reference Interval Normal >/= 90 mL/min/1.73m2 Mildly decreased* 60 - 89 mL/min/1.73m2 Mildly to moderately decreased 45 - 59 mL/min/1.73m2 Moderately to severely decreased 30 - 44 mL/min/1.73m2 Severely decreased 15 - 29 mL/min/1.73m2 Kidney Failure < 15 mL/min/1.73m2 *Relative to young adult level Estimated glomerular filtration rate is determined by the 2020 CKD-EPI equation recommended by the National Kidney Foundation (A Unifying Approach to GFR Estimation: Recommendations of the NKF-ASK Task Force on Reassessing the Inclusion of Race in Diagnosing Kidney Disease, JASN 2020). The CKD-EPI equation should not be used for patients with unstable renal function and has not been validated in children and those over 70. Current interpretive data was last reviewed 2021. Testing performed by: [facility], [address] [place] [address] Blood 12/31/2024 8:48 AM CDT 12/31/2024 9:18 AM CDT us Taty Bell NP LAB BLOOD ORDERABLES Final Result [facility] [address] [place] [address] * (ABNORMAL) Differential, auto (12/31/2024 8:48 AM CDT) Neutrophil abs 7.27(H) 1.50 - 6.50 K/cumm Comment:Testing performed by : [place] [address], [address] [place] [address] Imm gran abs 0.03 0.00 - 0.10 K/cumm CERNER [facility] Comment:Testing performed by : [place] [address], [address] [place] [address] Lymphocyte abs 0.46(L) 0.80 - 3.30 K/cumm CERNER [facility] Comment:Testing performed by : [place] [address] [place] [address] Monocyte abs 0.62 0.20 - 0.80 K/cumm CERNER [facility] Comment:Testing performed by : [place] [address], [place] [address] Eosinophil abs 0.04 0.00 - 0.50 K/cumm CERNER [facility] Comment:Testing performed by : [place] [address] [place] [address] Basophil abs 0.03 0.00 - 0.10 K/cumm CERNER [facility] Comment:Testing performed by : [place] [address] [place] [address] Neutrophil pct 86.0 % CERNER [facility] Comment: Interpretive Data Percent cell count reference ranges are not reported, since discordance with absolute values may lead to misinterpretation of CBC data. Current Interpretive Data was last revised on 2017. Testing performed by: [place] [address], [address] [place] [address] Imm gran pct 0.4 % CERNER [facility] Comment: Interpretive Data Percent cell count reference ranges are not reported, since discordance with absolute values may lead to misinterpretation of CBC data. Current Interpretive Data was last revised on 2017. Testing performed by: [facility], [facility], [address] [place] [address] Lymphocyte pct 5.4 % CERCATRINA SALCIDOWCH Comment: Interpretive Data Percent cell count reference ranges are not reported, since discordance with absolute values may lead to misinterpretation of CBC data. Current Interpretive Data was last revised on 2017. Testing performed by: [facility], [facility], [address] [place] [address] Monocyte pct 7.3 % CERCATRINA SALCIDOWCH Comment: Interpretive Data Percent cell count reference ranges are not reported, since discordance with absolute values may lead to misinterpretation of CBC data. Current Interpretive Data was last revised on 2017. Testing performed by: [facility], [facility], [address] [place] [address] Eosinophil pct 0.5 % CERCATRINA HUANG Comment: Interpretive Data Percent cell count reference ranges are not reported, since discordance with absolute values may lead to misinterpretation of CBC data. Current Interpretive Data was last revised on 2017. Testing performed by: [facility], [facility], [address] [place] [address] Basophil pct 0.4 % CERCATRINA SALCIDOWDAVID Comment: Interpretive Data Percent cell count reference ranges are not reported, since discordance with absolute values may lead to misinterpretation of CBC data. Current Interpretive Data was last revised on 2017. Testing performed by: [facility], [facility], [address] [place] [address] Blood 12/31/2024 8:48 AM CDT 12/31/2024 8:51 AM CDT us Taty Bell NP LAB BLOOD ORDERABLES Final Result [facility] [address] [facility]. [place] [address] * (ABNORMAL) CBC with auto differential (12/31/2024 8:48 AM CDT) WBC 8.45 3.80 - 9.90 K/cumm Comment:Testing performed by : [facility], [address], [place] [address] Hgb 13.1 11.9 - 15.5 g/dL CERNER [facility] Comment:Testing performed by : [place] [address], [address], [place] [address] Hct 39.6 35.6 - 45.5 % CERNER [facility] Comment:Testing performed by : [place] [address], [address], [place] [address] Plt 260 150 - 400 K/cumm CERNER [facility] Comment:Testing performed by : [place] [address], [address], [place] [address] MPV 8.7(L) 9.1 - 12.3 fL C[facility]ER [facility] Comment:Testing performed by : [place] [address], [address], [place] [address] RBC 4.22 3.90 - 5.20 M/cumm CERNER [facility] Comment:Testing performed by : [place] [address], [address], [place] [address] MCV 93.8 81.3 - 96.4 fL C[facility]ER [facility] Comment:Testing performed by : [place] [address], [address], [place] [address] MCH 31.0 27.1 - 33.3 pg CERNER [facility] Comment:Testing performed by : [place] [address], [address] [place] [address] MCHC 33.1 32.3 - 35.7 g/dL CERNER [facility] Comment:Testing performed by : [facility], [address], [place] [address] RDW CV 12.5 11.1 - 14.9 % CERNER [facility] Comment:Testing performed by : [place] [address], [address] [place] [address] RDW SD 43.6 35.7 - 48.1 fL MAGDALENE HUANG Comment:Testing performed by : [facility], [facility], [address] [place] [address] ANC Prelim 7.27(H) 1.50 - 6.50 K/cumm MAGDALENE HUANG Comment: Interpretive Data The rapid ANC is a preliminary automated count and may vary from the final ANC (Neut Abs) reported in the WBC differential that follows. Current interpretive data was last revised 2024. Testing performed by: [facility], [facility], [address] [place] [address] Blood 12/31/2024 8:48 AM CDT 12/31/2024 8:51 AM CDT Taty Bell NP LAB BLOOD ORDERABLES Final Result Performing Organization Address City/[facility]/ZIP Co de Phone Number [facility] [address] [address] [employer]. [facility] [address] * TSH (12/31/2024 8:48 AM CDT) Thyroid Stimulating Hormone 2.22 0.30 - 4.20 mcIUnit/mL Comment:Testing performed by : [facility], [address] [place] [address] Blood 12/31/2024 8:48 AM CDT 12/31/2024 9:18 AM CDT Taty Bell DAMPENER LAB BLOOD ORDERABLES Final Result Performing Organization Address City/[facility] Co de Phone Number [facility] [address] [employer]. [facility] [address] * Comprehensive metabolic panel (12/31/2024 8:48 AM CDT) Sodium 139 135 - 145 mmol/L Comment:Testing performed by : [facility], [address], [place] [address] Potassium, pl 3.9 3.3 - 4.9 mmol/L CERNER [facility] Comment:Testing performed by : [facility], [address], [place] [address] Chloride 100 97 - 110 mmol/L CERNER BJWCH Comment:Testing performed by : [facility], [address], [place] [address] CO2 24 22 - 32 mmol/L CERNER BJWCH Comment:Testing performed by : [facility], [address], [place] [address] Anion gap 15 2 - 15 mmol/L CERNER BJWCH Comment:Testing performed by : [facility], [address], [place] [address] BUN 12 6 - 25 mg/dL CERNER BJWCH Comment:Testing performed by : [facility], [address], [place] [address] Creatinine 0.60 0.60 - 1.10 mg/dL CERNER BJWCH Comment:Testing performed by : [facility], [address], [place] [address] Glucose 86 70 - 199 mg/dL CERNER BJWCH Comment: Interpretive Data Fasting glucose >/= 126 mg/dl is diagnostic for diabetes. Fasting is defined as no caloric intake for at least 8 hours. Fasting glucose between 100 mg/dl to 125 mg/dl is diagnostic of prediabetes. In a patient with classic symptoms of hyperglycemia or hyperglycemic crisis, a random glucose >/= 200 mg/dl is diagnostic for diabetes. In the absence of unequivocal hyperglycemia, results should be confirmed by repeat testing. The classification and Diagnosis of Diabetes Diabetes Care 2021; 46: S19-S40. Current interpretive data was last revised 2022. Testing performed by: [facility], [address], [place] [address] Calcium 9.7 8.5 - 10.3 mg/dL CERNER BJWCH Comment:Testing performed by : [facility], [address], [place] [address] Bilirubin, total 0.4 0.1 - 1.2 mg/dL CERNER BJWCH Comment:Testing performed by : [facility], [address], [place] [address] Protein, pl 6.7 6.5 - 8.5 g/dL CERNER BJWCH Comment:Testing performed by : [facility], [address], [place] [address] Albumin 4.1 3.5 - 5.0 g/dL CERNER BJWCH Comment:Testing performed by : [facility], [address], [place] [address] Alk phos 125 40 - 130 Units/L CERNER BJWCH Comment:Testing performed by : [facility], [address], [place] [address] ALT 23 7 - 45 Units/L CERNER BJWCH Comment:Testing performed by : [facility], [address], [place] [address] AST 25 10 - 45 Units/L CERNER BJWCH Comment:Testing performed by : [facility], [address], [place] [address] Blood 12/31/2024 8:48 AM CDT 12/31/2024 9:18 AM CDT Taty Bell NP LAB BLOOD ORDERABLES Final Result [facility] [address] [place] [address] * CT Chest Abdomen Pelvis W Contrast (12/31/2024 7:45 AM CDT) Anatomical Region Laterality Modality Body N/A Computed Tomogra phy 12/31/2024 9:58 AM CDT Impressions 12/31/2024 11:15 AM CDT Posttreatment changes along the left para-aortic/aortopulmonary region with interval resolution of the left supraclavicular lymph node. No evidence of metastatic disease within the abdomen or pelvis. Dictated by: Med Chilel MD The radiology attending physician has personally reviewed this study, and had reviewed and/or edited this written report and agrees with it. Electronically signed by: Alfonso Orr M.D. Narrative 12/31/2024 11:15 AM CDT EXAMINATION: Computed tomography of the chest, abdomen and pelvis with intravenous contrast HISTORY: Left lung cancer TECHNIQUE: Transaxial computed tomographic images of the chest, abdomen and pelvis were obtained with intravenous contrast according to the standard protocol after the uneventful administration of 100 mL Opti-Ray 350 intravenous contrast. COMPARISON: 10/22/2024 FINDINGS: Heart size normal. No pericardial effusion. 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 Coronary and aortic calcifications. There is likely mild right and moderate left renal artery stenosis. The left supraclavicular lymph node has resolved in the interim. No thoracic lymphadenopathy. Severe emphysema. Linear atelectasis and/or scarring within the lung bases. A 6 mm nodule within the lingula is unchanged (series 3 image 112). There are post radiation treatment changes within the periaortic and aortopulmonary region with unchanged mild soft tissue thickening within this region (series 2 image 53). No new suspicious pulmonary nodules are noted. No pneumothorax or pleural effusion. Central airways are patent. There is mild liver surface nodularity with periportal widening which can be seen with fibrosis. No biliary ductal dilatation. Gallbladder is normal. Portal and splenic veins are patent. Pancreas, spleen, and right adrenal are normal. Mild thickening of the left adrenal gland is unchanged. No suspicious renal mass or hydronephrosis. Bladder is decompressed. No suspicious adnexal mass. No free pelvic fluid. Colonic diverticulosis. Appendectomy. No bowel obstruction or free air. Esophagus, stomach, and duodenum are normal. Prominent but subcentimeter gastrohepatic lymph nodes are unchanged. No suspicious abdominal or pelvic lymphadenopathy. No suspicious osseous lesions. 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 No suspicious osseous lesions. Unchanged mild T11 compression deformity. Procedure Note [id number]|2025-01-12 10:50:00|2025-01-12 10:49:00|XMS_ITS|BKG DARYANON|External Medical Summaries|[id number]|" Clinical Summary Created on: January 12, 2025 Audrey Trent : 1955 Sex: Female Author Organization [facility] Address [address] [place] [address] Care Team Providers Care Test Fixture Designer Name Role Phone Eduin Ricks MD Primary Care Provider Naty Whitt MD Unavailable [phone] Fly Lau MD Unavailable [phone] Perri Cameron MD Unavailable Allergies No known active allergies Medications ferrous sulfate 325 mg (65 mg of elemental iron) tabletIndication s:Iron Deficiency Anemia Take 1 tablet (325 mg total) by mouth every evening Active hydroxyurea (HYDREA) 500 mg capsuleIndicatio ns:Blood mutation- CHARLEY 2 Take 1 capsule (500 mg total) by mouth every morning Active omeprazole (PriLOSEC) 20 mg capsuleIndicatio ns:Stress Ulcer Prophylaxis Take 1 capsule (20 mg total) by mouth daily as needed (GERD) Active acetaminophen (TYLENOL) 500 mg tabletIndication s:Pain Take 1 tablet (500 mg total) by mouth every 4 (four) hours as needed for pain Active multivitamin tabletIndication s:Vitamin Deficiency Prevention Take 1 tablet by mouth every other day Active ascorbic acid 500 mg tablet,chewableI ndications:Vitam in C Deficiency Take 1 tablet/chew tab (500 mg total) by mouth every 48 hours Active biotin 1,000 mcg tablet,chewableI ndications:Bioti n Deficiency Take 1 tablet by mouth every evening Active folic acid (FOLVITE) 800 mcg tabletIndication s:Folate Deficiency Take 1 tablet (800 mcg total) by mouth every evening Active UNABLE TO FINDIndications: Supplement Take 1 each by mouth every morning Med Name: Prevagen Active lidocaine-priloc elle (EMLA) creamIndications :Administration of Local Anesthesia Apply a dime size amount of cream to port and cover with plastic wrap 1 hour before needle insertion 30 g 2 4 Active prochlorperazine (COMPAZINE) 10 mg tablet Take 1 tablet (10 mg total) by mouth every 6 (six) hours as needed for nausea 30 tablet 2 4 Active Additional Information Patient taking differently:10 mg oral Every 6 hours PRN, nausea,Indications: Cancer Chemotherapy-Induced Nausea and Vomiting, Informant: Self, Reported on 10/26/2024 ondansetron (ZOFRAN) 8 mg tablet Take 1 tablet (8 mg total) by mouth every 8 (eight) hours as needed for nausea or vomiting 20 tablet 2 4 Active senna-docusate (PERICOLACE) 8.6-50 mg Take 2 tablets by mouth 2 (two) times a day 4 Active polyethylene glycol (MIRALAX) 17 gram packetIndication s:constipation Take 1 packet (17 g total) by mouth daily 4 Active Additional Information Patient taking differently:17 g oralDaily PRN, constipation, Indications: constipation, Informant: Self, Reported on 10/26/2024 albuterol HFA (PROVENTIL HFA,VENTOLIN HFA,PROAIR HFA) 90 mcg/actuation inhalerIndicatio ns:Acute Asthma Attack Inhale 2 puffs every 4 (four) hours as needed for wheezing or shortness of breath Uses a few times a week 4 Active cholecalciferol, vitamin D3, (VITAMIN D3 ORAL)Indications :Supplement Take 1 tablet by mouth every evening Active acetaminophen (TYLENOL) 325 mg tablet Take 2 tablets (650 mg total) by mouth every 6 (six) hours 5 Active ibuprofen (ADVIL,MOTRIN) 600 mg tablet Take 1 tablet (600 mg total) by mouth every 6 (six) hours as needed for pain 5 Active oxyCODONE (ROXICODONE) 5 mg immediate release tabletIndication s:Pain Take 1 tablet (5 mg total) by mouth every 4 (four) hours as needed for pain for up to 5 doses 5 tablet 5 Active Active Problems Patient Care Coordination No te Formatting of this note migh t be different from the original. Referring provider: Dr. Ortiz Keith Ms. Audrey Trent is a 68-year-old with lymphadenopathy. She initially presented with hoarseness and concerned for paralyzed vocal cords. On 03/02/2024 the patient underwent a CT of the neck and chest with contrast which noted left supraclavicular and AP window lymphadenopathy, consistent with metastatic disease versus lymphoma. 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 There was a 9.7 x 3.7 x 2.2 cm cystic mass in the anterior mediastinum which may be a thymic cyst or venous malformation. There was severe emphysema. There was cirrhosis of the liver. Patient is a former smoker with a 30 pack year smoking history. Patient presents today for further surgical evaluation. 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 Encounters Date Type Department Care Team Description 12/31/2024 10:15 AM CDT Infusion [facility] at [address] [place] [address] Regional lymph node metastasis present (HCC) (Primary Dx); Cancer of lower lobe of left lung (HCC) 12/31/2024 9:45 AM CDT Office Visit [facility] Oncology [address] [facility] [address] [place] [id number] Taty Bell, SAMAN Cancer of lower lobe of left lung (HCC) (Primary Dx); Regional lymph node metastasis present (HCC); Hoarseness of voice; Meningioma (HCC) 12/31/2024 8:45 AM CDT Clinical Support [facility] [address] [place] [address] Cancer of lower lobe of left lung (HCC); Regional lymph node metastasis present (HCC) 12/31/2024 7:26 AM CDT - 12/31/2024 11:59 PM CDT Hospital Encounter [facility] [address] [address] Cancer of lower lobe of left lung (HCC); Regional lymph node metastasis present (HCC) Discharge Disposition: Discharge to home or self care 12/08/2024 9:20 AM CDT Therapy [facility] Otolaryngology [address] [place] [address] [place] [address] Andie South, AGUSTIN Unilateral vocal fold paralysis (Primary Dx); Hoarseness 12/08/2024 9:20 AM CDT Office Visit [facility] ([facility]) - [facility] ENT [address] [place] [address] [place] [address] Tomasz Gallegos MD 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); Hoarseness of voice 12/03/2024 10:15 AM CDT Infusion [facility] at [address] [place] [address] Regional lymph node metastasis present (HCC) (Primary Dx); Cancer of lower lobe of left lung (HCC) 12/03/2024 9:45 AM CDT Office Visit [facility] Oncology [address] [place] [address] [address] [place] [address] Taty Bell NP Cancer of lower lobe of left lung (HCC) (Primary Dx); Regional lymph node metastasis present (HCC); Hoarseness of voice 12/03/2024 8:45 AM CDT Clinical Support [facility] at [address] [place] [address] Cancer of lower lobe of left lung (HCC); Regional lymph node metastasis present (HCC) 11/10/2024 9:20 AM CDT Therapy [facility] Otolaryngology [address] [place] [address] [place] [address] Andie South, AGUSTIN Unilateral vocal fold paralysis (Primary Dx) 11/10/2024 9:20 AM CDT Office Visit [facility] ([facility]) - [facility] ENT [address] [place] [address] [place] [address] Tomasz Gallegos MD 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) 11/05/2024 10:15 AM HEALTH AND SAFETY SPECIALIST Infusion [facility] at [address] [place] [address] Regional lymph node metastasis present (HCC) (Primary Dx); Cancer of lower lobe of left lung (HCC) 11/05/2024 9:40 AM HEALTH AND SAFETY SPECIALIST Office Visit [facility] Oncology [address] [place] [address] [address] [place] [address] Naty Whitt MD Cancer of lower lobe of left lung (HCC) (Primary Dx); Regional lymph node metastasis present (HCC); Hoarseness of voice; Essential thrombocytosis (HCC); Meningioma (HCC) 11/05/2024 8:45 AM HEALTH AND SAFETY SPECIALIST Clinical Support [facility] at [address] [place] [address] Cancer of lower lobe of left lung (HCC); Regional lymph node metastasis present (HCC) 11/01/2024 Telephone [facility] Oncology [address] [place] [address] [address] [place] [address] Mare Bowen RN 10/30/2024 11:32 AM HEALTH AND SAFETY SPECIALIST - 10/30/2024 11:59 PM HEALTH AND SAFETY SPECIALIST Hospital Encounter [facility] [address] [place] [address] Cancer of lower lobe of left lung (HCC); Regional lymph node metastasis present (HCC) Discharge Disposition: Discharge to home or self care 10/26/2024 10:45 AM HEALTH AND SAFETY SPECIALIST - 10/26/2024 1:35 PM HEALTH AND SAFETY SPECIALIST Surgery [facility] [address] [place] [address] Tomasz Gallegos MD THYROPLASTY 10/26/2024 10:27 AM HEALTH AND SAFETY SPECIALIST Anesthesia Event [facility] [address] [place] [address] Nacho Welsh MD Jablonski, Melody A., NP 10/26/2024 8:42 AM HEALTH AND SAFETY SPECIALIST - 10/27/2024 11:50 AM HEALTH AND SAFETY SPECIALIST Hospital Encounter [facility] [address] [place] [address] Tomasz Gallegos MD Unilateral complete paralysis of vocal cord [J38.01] (Primary Dx); Hoarseness of voice [R49.0] Discharge Disposition: Discharge to home or self care 10/22/2024 10:15 AM HEALTH AND SAFETY SPECIALIST Infusion [facility] at [facility] [address] [place] [address] Regional lymph node metastasis present (HCC) (Primary Dx); Cancer of lower lobe of left lung (HCC) 10/22/2024 9:45 AM HEALTH AND SAFETY SPECIALIST Office Visit [facility] Oncology [address] [place] [id number] Taty Bell NP Cancer of lower lobe of left lung (HCC) (Primary Dx); Regional lymph node metastasis present (HCC); Hoarseness of voice 10/22/2024 8:45 AM HEALTH AND SAFETY SPECIALIST Clinical Support [facility] at [facility] [address] [place] [address] Cancer of lower lobe of left lung (HCC); Regional lymph node metastasis present (HCC) 10/22/2024 6:34 AM HEALTH AND SAFETY SPECIALIST - 10/22/2024 11:59 PM HEALTH AND SAFETY SPECIALIST Hospital Encounter [facility] [address] [place] [place] [address] Cancer of lower lobe of left lung (HCC); Regional lymph node metastasis present (HCC) Discharge Disposition: Discharge to home or self care 10/18/2024 Orders Only [facility] Oncology [address] [facility] [address] [place] [address] Veronica Roberson RPh from Last 3 Months Surgical History Surgery Date Site/Laterality Comments US GUIDED BIOPSY LYMPH NODE SUPERFICIAL LEFT 03/16/2024 N/A APPENDECTOMY long time ago CATARACT EXTRACTION 09/01/2023 - 08/31/2024 Bilateral PORT PLACEMENT CHEST >5 YEARS 05/14/2024 N/A COLONOSCOPY 09/01/2023 - 08/31/2024 Medical History Medical History Date Comments CHARLEY-2 gene mutation GERD (gastroesophageal reflux disease) Family History Medical History Relation Name Comments Breast cancer Mother Relation Name Status Comments Mother Social History Tobacco Use Types Packs/Day Years Used Date Smoking Tobacco: Former Cigarettes 1 50.2 1 973 - 10/2022 Passive Smoke Exposure: Never Smokeless Tobacco: Never Tobacco Cessation:Counseling Given: Not Answered AUDIT-C Answer Date Recorded Q1: How often do you have a drink containing alcohol? Never 10/26/2024 Q2: How many drinks containi ng alcohol do you have on a typical day when you are drinking? Patient does not drink Q3: How often do you have si x or more drinks on one occasion? Never 10/26/2024 Personal Safety Answer Date Recorded Have you ever been in or are you currently in a harmful physical or emotional relationship or is someone making you feel afraid or unsafe? Denies 10/26/2024 Comments No Sex and Gender Information Value Date Recorded Sex Assigned at Not on file Legal Sex Female 11:26 AM CDT Gender Identity Not on file Sexual Orientation Not on file Obstetrics History Last Filed Vital Signs Vital Sign Reading Time Taken Comments Blood Pressure 107/70 12/31/2024 9:26 AM CDT Pulse 94 12/31/2024 9:26 AM CDT Temperature 36.3 C (97.4 F) 12/31/2024 9:26 AM CDT Respiratory Rate 18 12/31/2024 9:26 AM CDT Oxygen Saturation 95% 12/31/2024 9:26 AM CDT Inhaled Oxygen Concentration - - Weight 51.8 kg (114 lb 3.2 oz) 12/31/2024 9:26 A M CDT Height 165.1 cm (5' 5 ) 10/26/2024 9:10 AM HEALTH AND SAFETY SPECIALIST Body Mass Index 19 10/26/2024 9:10 AM HEALTH AND SAFETY SPECIALIST Plan of Treatment Scheduled Procedures Name Priority Associated Diagnoses Date/Ti me COLONOSCOPY Regional lymph node metastasis present (HCC) Health Maintenance Due Date Last Done Comments Colon Cancer Screening-Colonoscopy 1955 Depression Screening 1955 Hepatitis C Screening 1955 DTaP/Tdap/Td Vaccine (1 - Tdap) 1965 Hepatitis B Screening 1972 Pneumococcal vaccine 65+ (1 of 2 - PCV) 1973 Zoster Vaccine (1 of 2) 1973 Well Visit 65+ 2019 Covid-19 Vaccine (3 - Moderna risk series) 01/19/2021 12/22/2020, 11/24/2020 Breast Cancer Screening-Mammogram 04/14/2025 024 Influenza Vaccine (Season Ended) 2025 Osteoporosis Screening-Bone Density Scan 05/29/2025 05/29/2023 Fall Risk Assessment 10/27/2025 10/27/2024, 04/30/20 24 Medical Devices Implanted Type Area Bleach Mixer Device Identifier Shelf Expiration Date Model / Serial / Lot [employer] Excela Low Porfile Power Port 8fr 1.6mm 1 Lumen [id number] - [id number] Implanted:Qty: 1 on 05/14/2024 at [facility] [employer] 01/14/2029 [id number] / / [id number] Procedures Procedure Name Priority Date/Time Associated Diagnosis Comments EGFR STAT 12/31/2024 8:48 AM CDT Cancer of lower lobe of left lung (HCC) Regional lymph node metastasis present (HCC) DIFFERENTIAL AUTO Routine 12/31/2024 8:4 8 AM CDT Cancer of lower lobe of left lung (HCC) Regional lymph node metastasis present (HCC) CBC WITH AUTO DIFFERENTIAL Routine 12/31/2024 8:48 AM CDT Cancer of lower lobe of left lung (HCC) Regional lymph node metastasis present (HCC) COMPREHENSIVE METABOLIC PANEL STAT 12/31/2024 8:48 AM CDT Cancer of lower lobe of left lung (HCC) Regional lymph node metastasis present (HCC) TSH Routine 12/31/2024 8:48 AM CDT Cancer of lower lobe of left lung (HCC) Regional lymph node metastasis present (HCC) CT CHEST ABDOMEN PELVIS W CONTRAST Schedule KEILY, Read KEILY (Appt Today, Awaiting Results) 12/31/2024 7:45 AM CDT Cancer of lower lobe of left lung (HCC) Regional lymph node metastasis present (HCC) EGFR STAT 12/03/2024 8:42 AM CDT Cancer of lower lobe of left lung (HCC) Regional lymph node metastasis present (HCC) DIFFERENTIAL AUTO Routine 12/03/2024 8:4 2 AM CDT Cancer of lower lobe of left lung (HCC) Regional lymph node metastasis present (HCC) CBC WITH AUTO DIFFERENTIAL Routine 12/03/2024 8:42 AM CDT Cancer of lower lobe of left lung (HCC) Regional lymph node metastasis present (HCC) COMPREHENSIVE METABOLIC PANEL STAT 12/03/2024 8:42 AM CDT Cancer of lower lobe of left lung (HCC) Regional lymph node metastasis present (HCC) EGFR STAT 11/05/2024 8:50 AM HEALTH AND SAFETY SPECIALIST Cancer of lower lobe of left lung (HCC) Regional lymph node metastasis present (HCC) DIFFERENTIAL AUTO Routine 11/05/2024 8:5 0 AM HEALTH AND SAFETY SPECIALIST Cancer of lower lobe of left lung (HCC) Regional lymph node metastasis present (HCC) CBC WITH AUTO DIFFERENTIAL Routine 11/05/2024 8:50 AM HEALTH AND SAFETY SPECIALIST Cancer of lower lobe of left lung (HCC) Regional lymph node metastasis present (HCC) COMPREHENSIVE METABOLIC PANEL STAT 11/05/2024 8:50 AM HEALTH AND SAFETY SPECIALIST Cancer of lower lobe of left lung (HCC) Regional lymph node metastasis present (HCC) MRI BRAIN W WO CONTRAST Schedule KEILY, Read Routine (Patient lives out of area) 10/30/2024 1:21 PM HEALTH AND SAFETY SPECIALIST Cancer of lower lobe of left lung (HCC) Regional lymph node metastasis present (HCC) THYROPLASTY 10/26/2024 10:30 AM HEALTH AND SAFETY SPECIALIST Unilateral complete paralysis of vocal cord Special Needs standard thyroplasty setup. flex scope. silastic. EGFR STAT 10/22/2024 9:07 AM HEALTH AND SAFETY SPECIALIST Cancer of lower lobe of left lung (HCC) Regional lymph node metastasis present (HCC) DIFFERENTIAL AUTO Routine 10/22/2024 9:0 7 AM HEALTH AND SAFETY SPECIALIST Cancer of lower lobe of left lung (HCC) Regional lymph node metastasis present (HCC) CBC WITH AUTO DIFFERENTIAL Routine 10/22/2024 9:07 AM HEALTH AND SAFETY SPECIALIST Cancer of lower lobe of left lung (HCC) Regional lymph node metastasis present (HCC) COMPREHENSIVE METABOLIC PANEL STAT 10/22/2024 9:07 AM HEALTH AND SAFETY SPECIALIST Cancer of lower lobe of left lung (HCC) Regional lymph node metastasis present (HCC) CT CHEST ABDOMEN PELVIS W CONTRAST Schedule KEILY, Read KEILY (Appt Today, Awaiting Results) 10/22/2024 6:57 AM HEALTH AND SAFETY SPECIALIST Cancer of lower lobe of left lung (HCC) Regional lymph node metastasis present (HCC) DIAGNOSTIC MAMMOGRAM BILATERAL W JAYDE Schedule Routine, Read Routine (OP Routine) 04/14/2024 3:44 PM CDT Regional lymph node metastasis present (HCC) Cancer with unknown primary site (HCC) from Last 3 Months or Most Recently Relevant to Health Maintenance Results * eGFR (12/31/2024 8:48 AM CDT) eGFR >90 >=60 mL/min/1. 73 m2 Comment: Interpretive Data Reference Interval Normal >/= 90 mL/min/1.73m2 Mildly decreased* 60 - 89 mL/min/1.73m2 Mildly to moderately decreased 45 - 59 mL/min/1.73m2 Moderately to severely decreased 30 - 44 mL/min/1.73m2 Severely decreased 15 - 29 mL/min/1.73m2 Kidney Failure < 15 mL/min/1.73m2 *Relative to young adult level Estimated glomerular filtration rate is determined by the 2020 CKD-EPI equation recommended by the National Kidney Foundation (A Unifying Approach to GFR Estimation: Recommendations of the NKF-ASK Task Force on Reassessing the Inclusion of Race in Diagnosing Kidney Disease, JASN 2020). The CKD-EPI equation should not be used for patients with unstable renal function and has not been validated in children and those over 70. Current interpretive data was last reviewed 2021. Testing performed by: [facility], [address] [place] [address] Blood 12/31/2024 8:48 AM CDT 12/31/2024 9:18 AM CDT Taty Bell DAMPENER LAB BLOOD ORDERABLES Final Result [facility] [address] Department of Laboratories [place] [phone] * (ABNORMAL) Differential, auto (12/31/2024 8:48 AM CDT) Neutrophil abs 7.27(H) 1.50 - 6.50 K/cumm Comment:Testing performed by : [facility], [facility] [address], [address] [place] [address] Imm gran abs 0.03 0.00 - 0.10 K/cumm MAGDALENE HUANG Comment:Testing performed by : [facility], [facility] 2, [address], [place] [address] Lymphocyte abs 0.46(L) 0.80 - 3.30 K/cumm MAGDALENE HUANG Comment:Testing performed by : [facility], [facility] 2, [address] [place] [address] Monocyte abs 0.62 0.20 - 0.80 K/cumm CERNER BJWCH Comment:Testing performed by : [facility], [facility] 2, [address] [place] [address] Eosinophil abs 0.04 0.00 - 0.50 K/cumm CERNER BJWCH Comment:Testing performed by : [facility], [facility] 2, [address] [place] [address] Basophil abs 0.03 0.00 - 0.10 K/cumm CERNER BJWCH Comment:Testing performed by : [facility], [facility] 2, [address] [place] [address] Neutrophil pct 86.0 % CERNER BJWCH Comment: Interpretive Data Percent cell count reference ranges are not reported, since discordance with absolute values may lead to misinterpretation of CBC data. Current Interpretive Data was last revised on 2017. Testing performed by: [facility], [facility] 2, [address] [place] [address] Imm gran pct 0.4 % CERNER BJWCH Comment: Interpretive Data Percent cell count reference ranges are not reported, since discordance with absolute values may lead to misinterpretation of CBC data. Current Interpretive Data was last revised on 2017. Testing performed by: [facility], [facility] 2, [address] [place] [address] Lymphocyte pct 5.4 % CERNER BJWCH Comment: Interpretive Data Percent cell count reference ranges are not reported, since discordance with absolute values may lead to misinterpretation of CBC data. Current Interpretive Data was last revised on 2017. Testing performed by: [facility], [facility] 2, [address] [place] [address] Monocyte pct 7.3 % CERNER BJWCH Comment: Interpretive Data Percent cell count reference ranges are not reported, since discordance with absolute values may lead to misinterpretation of CBC data. Current Interpretive Data was last revised on 2017. Testing performed by: [facility], [facility] 2, [address] [place] [address] Eosinophil pct 0.5 % CERNER BJWCH Comment: Interpretive Data Percent cell count reference ranges are not reported, since discordance with absolute values may lead to misinterpretation of CBC data. Current Interpretive Data was last revised on 2017. Testing performed by: [facility] 2, [address] [place] [address] Basophil pct 0.4 % MAGDALENE HUANG Comment: Interpretive Data Percent cell count reference ranges are not reported, since discordance with absolute values may lead to misinterpretation of CBC data. Current Interpretive Data was last revised on 2017. Testing performed by: [place] [address], [address] [place] [address] Blood 12/31/2024 8:48 AM CDT 12/31/2024 8:51 AM CDT us Taty Bell DAMPENER LAB BLOOD ORDERABLES Final Result Performing Organization Address City/State/[facility] Co de Phone Number MAGDALENE HUANG [address] [facility] [place] [address] * (ABNORMAL) CBC with auto differential (12/31/2024 8:48 AM CDT) WBC 8.45 3.80 - 9.90 K/cumm Comment:Testing performed by : [place] [address], [address] [place] [address] Hgb 13.1 11.9 - 15.5 g/dL MAGDALENE HUANG Comment:Testing performed by : [facility] 2, [address] [place] [address] Hct 39.6 35.6 - 45.5 % MAGDALENE HUANG Comment:Testing performed by : [facility] 2, [address] [place] [address] Plt 260 150 - 400 K/cumm MAGDALENE HUANG Comment:Testing performed by : [place] [address], [address] [place] [address] MPV 8.7(L) 9.1 - 12.3 fL CERNER BJWCH Comment:Testing performed by : [facility], [facility], [address] [place] [address] RBC 4.22 3.90 - 5.20 M/cumm CERNER BJWCH Comment:Testing performed by : [place] [address], [address] [place] [address] MCV 93.8 81.3 - 96.4 fL CERNER BJWCH Comment:Testing performed by : [place] [address], [address] [place] [address] MCH 31.0 27.1 - 33.3 pg CERNER BJWCH Comment:Testing performed by : [place] [address], [address] [place] [address] MCHC 33.1 32.3 - 35.7 g/dL CERNER BJWCH Comment:Testing performed by : [place] [address], [address] [place] [address] RDW CV 12.5 11.1 - 14.9 % CERNER BJWCH Comment:Testing performed by : [address] [place] [address] RDW SD 43.6 35.7 - 48.1 fL CERNER BJWCH Comment:Testing performed by : [address] [place] [address] ANC Prelim 7.27(H) 1.50 - 6.50 K/cumm CERNER BJWCH Comment: Interpretive Data The rapid ANC is a preliminary automated count and may vary from the final ANC (Neut Abs) reported in the WBC differential that follows. Current interpretive data was last revised 2024. Testing performed by: [facility] 2, [address] [place] [address] Blood 12/31/2024 8:48 AM CDT 12/31/2024 8:51 AM CDT Taty Bell DAMPENER LAB BLOOD ORDERABLES Final Result Performing Organization Address City/[facility] Co de Phone Number MAGDALENE HUANG [address] [address] [facility] [place] [address] * TSH (12/31/2024 8:48 AM CDT) Thyroid Stimulating Hormone 2.22 0.30 - 4.20 mcIUnit/mL Comment:Testing performed by : [facility], [address], [place] [address] Blood 12/31/2024 8:48 AM CDT 12/31/2024 9:18 AM CDT Taty Bell DAMPENER LAB BLOOD ORDERABLES Final Result Performing Organization Address [facility] de Phone Number MAGDALENE HUANG [address] [address] [place] [address] * Comprehensive metabolic panel (12/31/2024 8:48 AM CDT) Sodium 139 135 - 145 mmol/L Comment:Testing performed by : [facility], [address], [place] [address] Potassium, pl 3.9 3.3 - 4.9 mmol/L CERNER BJWCH Comment:Testing performed by : [facility], [address], [place] [address] Chloride 100 97 - 110 mmol/L CERNER BJWCH Comment:Testing performed by : [facility], [address] [place] [address] CO2 24 22 - 32 mmol/L CERNER BJWCH Comment:Testing performed by : [facility], [address] [place] [address] Anion gap 15 2 - 15 mmol/L CERNER BJWCH Comment:Testing performed by : [facility], [address], [place] [address] BUN 12 6 - 25 mg/dL CERNER BJWCH Comment:Testing performed by : [facility], [address], [place] [address] Creatinine 0.60 0.60 - 1.10 mg/dL CERNER BJWCH Comment:Testing performed by : [facility], [address], [place] [address] Glucose 86 70 - 199 mg/dL CERNER BJWCH Comment: Interpretive Data Fasting glucose >/= 126 mg/dl is diagnostic for diabetes. Fasting is defined as no caloric intake for at least 8 hours. Fasting glucose between 100 mg/dl to 125 mg/dl is diagnostic of prediabetes. In a patient with classic symptoms of hyperglycemia or hyperglycemic crisis, a random glucose >/= 200 mg/dl is diagnostic for diabetes. In the absence of unequivocal hyperglycemia, results should be confirmed by repeat testing. The classification and Diagnosis of Diabetes Diabetes Care 2021; 46: S19-S40. Current interpretive data was last revised 2022. Testing performed by: [facility], [address], [place] [address] Calcium 9.7 8.5 - 10.3 mg/dL CERNER BJWCH Comment:Testing performed by : [facility], [address], [place] [address] Bilirubin, total 0.4 0.1 - 1.2 mg/dL CERNER BJWCH Comment:Testing performed by : [facility], [address], [place] [address] Protein, pl 6.7 6.5 - 8.5 g/dL CERNER BJWCH Comment:Testing performed by : [facility], [address], [place] [address] Albumin 4.1 3.5 - 5.0 g/dL CERNER BJWCH Comment:Testing performed by : [facility], [address], [place] [address] Alk phos 125 40 - 130 Units/L CERNER BJWCH Comment:Testing performed by : [facility], [address], [place] [address] ALT 23 7 - 45 Units/L CERNER BJWCH Comment:Testing performed by : [facility], [address], [place] [address] AST 25 10 - 45 Units/L MAGDALENE HUANG Comment:Testing performed by : [facility], [address] [place] [address] Blood 12/31/2024 8:48 AM CDT 12/31/2024 9:18 AM CDT us Taty Bell DAMPENER LAB BLOOD ORDERABLES Final Result MAGDALENE HUANG [address] [facility]. [place] [address] * CT Chest Abdomen Pelvis W Contrast (12/31/2024 7:45 AM CDT) Anatomical Region Laterality Modality Body N/A Computed Tomogra phy 12/31/2024 9:58 AM CDT Impressions 12/31/2024 11:15 AM CDT Posttreatment changes along the left para-aortic/aortopulmonary region with interval resolution of the left supraclavicular lymph node. No evidence of metastatic disease within the abdomen or pelvis. Dictated by: Med Chilel MD The radiology attending physician has personally reviewed this study, and had reviewed and/or edited this written report and agrees with it. Electronically signed by: Alfonso Orr M.D. Narrative 12/31/2024 11:15 AM CDT This result has
--- OUTSIDE RECORDS SUMMARY | 2025-01-12 10:50 | XMS_ITS | Data Portability ---
Author Organization [place] - [facility], Main Office Address [address] [place] [address] Care Team Providers Care Machine Etcher Name Role Phone HANNY CURTIS Primary Care Provider HANNY CURTIS Referring Provider Assessment Encounter Date Assessment Date Assessment LastModified by Organization Details LastModified Time 05/22/2023 05/22/2023 impression: 1. Patient has grade 2 ankle sprain left ankle. This is associated with tiny flake avulsion fractures from the ligament sprains medially laterally. I have given her an active ankle stirrup splint at [facility] and she will continue to be weight-bearing as tolerated. 2. Patient has a surface flake fracture lateral margin of lateral tibial plateau which is likely a blowout fracture of the lateral wall nondisplaced. There is no obvious depression of lateral plateau. Surprising she did not have an effusion in the joint which argues against intra-articular fracture extension. It is possible this may be an avulsion fracture. I could not feel any asymmetry on Ariella's or anterior drawer on the right knee when compared to the left knee. The Secund fracture is avulsion fracture that occurs in this location also with ACL tear. I have recommended she be touch weight-bearing like partial weight-bearing in she was given a knee brace for stability left arm walk. She is at some risk for DVT with her history of thrombocytosis and usually we would start patient on a baby aspirin twice a day. She is going to be seeing Dr. Delatorre the tax commissioner tomorrow and will ask him whether it will be considered safe to start her on a baby aspirin twice a day. 3. Patient may have osteoporosis I recommend obtaining a bone density test this time. She will take calcium 1000 mg supplementation daily. She is taking 5000 mg of vitamin D3 as prescribed by Dr. Steven currently. I will see her back in 2 weeks assess her progress with x-rays of the right knee that time AP lateral and oblique views specifically she the the if she develops swelling in either leg she will need to call to be checked for DVT with a venous duplex ultrasound. She will try to keep the legs elevated as much as possible. Not available 05/22/2023 21:56:46 06/05/2023 06/05/2023 patient returns for follow-up of her right knee and left ankle. On 2022 she fell at home and injured her right knee and left ankle. X-rays the right knee at last visit demonstrated subtle flake avulsion over the lateral tibial plateau lateral surface. She was placed in a knee brace at that time. Her knee is been feeling much better and she has been full weight-bearing without pain the right knee. On exam today she no longer has any tenderness at the right lateral tibial plateau. She has full range of motion right knee. No effusion. Normal stability. X-rays of the right knee demonstrate the very subtle flake irregularity over the lateral margin of the lateral plateau again and no other abnormality. Impression: I suspect she had a tiny capsular avulsion at this location in the lateral plateau without actual compression fracture of the lateral plateau. She is full weight-bearing centrally asymptomatic. She may discontinue the brace. She has been taking a baby aspirin twice a day. Her left ankle today has minimal tenderness only at the tip the lateral malleolus. Minimal swelling in this area no medial tenderness. She has been wearing the active ankle stirrup splint and Darco shoe. Think she can discontinue use of the Darco shoe wear regular shoe in house but if she is going outside on uneven ground she may wish to use the splint to prevent recurrent sprain for another month or 2 depending on how her ankle feels. She declines formal physical therapy and I have given her an exercise instruction sheet for the ankle for strengthening proprioception exercises. She states that her back has been sore since she felt pain in her back while getting out of the recliner 2 days ago. The back of the reclined recliner flipped up and pushed her into flexion little bit. She does not feel it is bad enough to get x-rays to rule out compression fracture at this time but if it gets worse she will let us know. She would like to follow-up on as-needed basis for now. 20 minutes were spent total care this patient more than half the time spent in [id number] care. Not available 06/22/2023 10:23:28 Plan of Treatment Reminders Order Date Submit Date Provider Last Modified By Organization Details Last Modified Time Details Appointments None recorded. Lab None recorded. Referral None recorded. Procedures None recorded. Surgeries None recorded. Imaging XR, knee 023 023 [email or web address] [facility], [address] [place] [address], [place], [address], 3 11:39:00 XR, ankle 023 023 [email or web address] [facility], [address] [place] [address], [place], [address], 3 09:51:03 bone density - DEXA BONE DENSITY B-HIP AND L-SPINE 023 023 [email or web address] Not available 3 09:51:03 XR, knee 023 023 [email or web address] [facility], [address] [place] [address], [place], [address], 3 09:51:03 Medication Orders None recorded. Patient TargetsNo targets recorded. Patient InstructionsNo instructions recorded. Reason for Referral None Reported. Results Created Date Observation Date Name Description Value Unit Range Abnormal Flag Note LastModifiedBy Organization Detail LastModifiedTime 05/22/20 23 XR, knee No observ ation record ed. [email or web address] [facility] [address], [place], [address], 05/22/2023 21:51:32 05/22/20 23 XR, ankle No observ ation record ed. [email or web address] [facility] [address] [place] [address], [place], [address], 05/22/2023 21:52:13 05/29/20 23 DEXA, axial skele ton [facility] [address] [place] [address] Patien t Name: AUDREY TRENT ion #: [id number] Sex: F : 1955 4 4 Dictat ed By: Janet hernandez Attend ing Physic daina: TWIN ALEJO Orderi Physic daina: TWIN ALEJO Exam Date: 2022 08:12 AM Exam Name: XR DEXA AXIAL/ HIP/PE LVIS/S PINE Admitt ing Diagno sis(es ): CLINIC AL HISTOR Y: Postme nopaus al screen ing for osteop orosis . TECHNI QUE: The study was perfor med using a [employer]. Lumbar spine and proxim al femora l evalua tions were evalua bp in the fronta l projec tions. COMPAR JL: None. Baseli ne examin ation. FINDIN GS: L1-L4 demons trates a bone minera l densit y of 0.766 g/cm2 with a T-scor e of -3.5, consis tent with osteop orosis . Left femora l neck evalua tion demons trates a bone minera l densit y of 0.592 g/cm2 with a T-scor e of -3.2, consis tent with osteop orosis . Right femora l neck evalua tion demons trates a bone minera l densit y of 0.615 g/cm2 with a T-scor e of -3.0 consis tent with osteop orosis . IMPRES SATNAM: Bone minera l densit y is consis tent with osteop orosis based on lowest T score as detail ed above, with associ ated increa sed risk for fractu re. Electr onical ly Signed by: Janet hernandez at 2022 11:48: 46 AM Page 1 [email or web address] [facility] ([facility] [address] [place], [address], 05/29/2023 16:38:04 06/05/20 23 XR, knee No observ ation record ed. [email or web address] [facility] [address], [place], [address], 06/22/2023 10:24:01 Result Notes None recorded. Problems Name Problem SNOMED Code Status Onset Date Resolution Date Notes Provider Name and Address Organization Details Recorded Time Pain of right knee joint 7687623395062 00 Active 2022 Daisy Campos RMA null, [facility] 3 10:33:11 Pain of right ankle joint 4277227340320 9106 Active 2022 CHRISTINE AguilarA null, [facility] 3 10:33:22 Pain of left ankle joint 8794835042830 9103 Active 2022 Akanksha Howard CMA null, [facility] 3 10:37:37 Osteoporosi s 58385618 Active 2022 Akanksha Howard FORESTRY [employer]ID null, [facility] 3 11:56:08 Closed fracture of tibial plateau 819518097 Active 2022 JENNY Aguilar null, [facility] 3 15:01:40 Problem Notes None recorded. Procedures Surgical History None recorded. Imaging Results Imaging Date Name Status LastModified by Organiz ation Details LastModified Time 05/22/2023 XR, knee completed [email or web address] [facility] [address], [place], [address], 05/22/2023 21:51:32 05/22/2023 XR, ankle completed [email or web address] [facility] [address], [place], [address], 05/22/2023 21:52:13 05/29/2023 DEXA, axial skeleton completed [email or web address] [facility] [address], [place], [address], 05/29/2023 16:38:04 06/05/2023 XR, knee completed [email or web address] [facility] [address], [place], [address], 06/22/2023 10:24:01 Procedure Notes None recorded. Medical Equipment None Reported. Allergies No known drug allergies Medications Name Sig Start Date Stop Date Status Note LastModified by Organization Details LastModified Time amoxicillin 500 mg capsule TAKE 1 CAPSULE BY MOUTH 3 TIMES A DAY UNTIL GONE 05/22 completed Not Available Not Available Not Available hydroxyurea 500 mg capsule TAKE 1 CAPSULE BY MOUTH DAILY. active Not Available Not Available No t Available flurbiprofe n 0.03 % eye drops INSTILL 1 DROP INTO SURGICAL EYE 3X PER DAY STARTING AFTER SURGERY, CONTINUE FOR 3 WEEKS 05/22 completed Not Available Not Available Not Available prednisolon e acetate 1 % eye drops,suspe nsion INSTILL 1 DROP 3X PER DAY STARTING 4 HOURS AFTER SURGERY, CONTINUIN G FOR 3 WEEKS. 05/22 completed Not Available Not Available Not Available allopurinol 300 mg tablet TAKE 1 TABLET BY MOUTH EVERY DAY active Not Available Not Available No t Available moxifloxaci n 0.5 % eye drops TAKE 1 DROP 3 TIMES PER DAY STARTING 1 DAY PRIOR TO SURGERY, CONTINUIN G FOR 1 WEEK AFTER. 05/22 completed Not Available Not Available Not Available Vitals Date Recorded Body height Body mass index (BMI) Body weight Provider Name and Address Organization Details Last Updated DateTime 05/22/2023 163.2 cm 20.2 kg/m2 99757.06 g Akanksha Howard CMA [employer] 05/22/2023 10:36:47 Date Recorded Body height Provider Name an d Address Organization Details Last Updated DateTime 06/05/2023 163.2 cm JENNY Aguilar [employer] 06/05/2023 15:00:25 Social History None recorded. Functional Status Question Answer Note LastModified by Organization D etails LastModified Time What is your level of alcohol consumption? None Information not available 05/22/2023 Mental Status None recorded. Family History Nothing Reported. Medical History No medical history recorded. Gynecological HistoryNo gynecological history recorded. Obstetrics History GPAL:G 0 P 0 0 0 0 Past Encounters Encounter ID Performer Location Encounter Start Date Encounter Closed Date Diagnosis/Indication Diagnosis SNOMED-CT Code Diagnosis ICD10 Code Diagnosis Note [id number] Twin Jenkins MD [facility] [address] [place] [address] 05/22/2023 10:06:31 05/23/2023 09:51:03 Pain of right knee joint 6043996133 04590 M25.561 Pain of le ft ankle joint 2120887861 9847839 M25.572 Osteoporosis 75499662 M8 1.0 [id number] Twin Jenkins MD [facility] [address] [place] [address] 06/05/2023 14:58:15 06/23/2023 11:39:00 Closed fracture of tibial plateau 004015052 S82.101D Health Concerns Section Related Observation LastModified by Organization Detai ls LastModified Time None Recorded Concern Status LastModified by Organization Details LastModified Time None Recorded Advance Directives Directive None Recorded Payers Encounter Date Sequence Insurance Name Policy Number Policy Morley Covered Member ID Morley Member ID Guarantor Name 05/22/2023 1 [place] Audrey Trent [id number] Audrey Trent 05/22/2023 2 [employer] [place] [id number] Audrey Trent 06/05/2023 1 [place] Audrey Trent [id number] 2 Audrey Trent 06/05/2023 2 [employer] [place] Audrey Trent [id number] Audrey Trent Notes Date Note Type Note Provider Name and Address Organization Details Recorded Time 05/22/2023 text/html patient is a 67-year-old female with a who presents for evaluation of her right knee left ankle. Four days ago at home she stumbled inverting her left ankle and then falling onto the anteromedial aspect of her right knee. She has a bruise over the anteromedial tibial plateau but her pain is over the lateral aspect of the right knee. Her past medical history is significant for recent diagnosis of thrombocytosis and she is treating this with hydroxyurea. She also takes allopurinol. She was found have a hemoglobin of 7 and has received iron transfusions and iron supplementation. She actually sees the tax commissioner tomorrow for blood work to see how these treatments are working for her. She has not been started on the aspirin yet because of the concern of undiagnosed source of bleeding in her GI tract. She has had upper GI and lower GI which were negative and a CT scan of the abdomen was negative. She has not had capsule endoscopy to this point. Her guaiacs have been negative. Twin Jenkins MD [address] [place] [address], [facility] [address], [place], [address], [place] [facility] [email or web address] 05/22/2023 21:56:58 OBGyn Episode No OBEpisode recorded.
--- OUTSIDE RECORDS SUMMARY | 2025-01-12 10:50 | XMS_ITS ---
Author Organization [facility] Address [facility] [place] [address] Care Team Providers Care Mobility Architect Manager Name Role Phone Eduin Ricks MD Primary Care Provider Naty Whitt MD Unavailable Fly Lau MD Unavailable [phone] Perri Cameron MD Unavailable [phone] Active Problems Patient Care Coordination No te [...] of left lung 04/02/2024 Essential thrombocytosis 03/09/2024 Current Treatment and Therapy Plans durvalumab consolidation 14 Day Cycles - Lung (Switched to 1500 mg 28 day Cycles starting Cycle 7+)* Plan Start Date:07/22/2024 Plan Provider:Taty Bell NP Linked Problems Cancer of lower lobe of left lung (HCC)Regional lymph node metastasis present (HCC) Treatment Medications Current Day (Day 1 , Cycle 10 - Planned for 01/28/2025) Next Day (Day 1, Cycle 11 - Planned for 02/25/2025) durvalumab (IMFINZI)durvalumab (IMFINZI) IVPB in 100 mL solution durvalumab (IMFINZI) 1,500 mg in sodium chloride 0.9% 100 mL IVPB durvalumab (IMFINZI) 1,500 mg in sodium chloride 0.9% 100 mL IVPB IV Maintenance Therapy Plan* Plan Start Date:08/13/2024 Plan Provider:Naty Whitt MD Linked Problems Cancer of lower lobe of left lung (HCC) Treatment Medications No medications scheduled. Past Treatment and Therapy Plans Oncology Chemotherapy Treatment Plan Name Start Date Discontinue Date Treatment Medications Discontinue Reason Plan Provider Cycles PACLItaxel / CARBOplatin with Concurrent Radiation: Induction / Weekly - Non-Small Cell Lung 4 07/14/2024 CARBOplatin (PARAPLATIN)CAR BOplatin (PARAPLATIN) IVPB in 250 mLPACLitaxel (TAXOL)PACLItax el (TAXOL) 100 ml Therapy Complete Naty Whitt MD 1 of 1 cycle started Radiation Treatments * Course [id number] 05/17/2024 - 06/25/2024 Treatment Period Energy Fraction Dose Fractions Total Dose Plans Planned L MEDIASTINUM 05/17/2024 - 06/25/2024 200 30 / 6,000 Reference Points Delivered L MEDIASTINUM_60 05/17/2024 - 06/25/2024 6,000 Lifetime Dose Tracking * Chemical Lifetime Dose Automatic Entry Manual Entr y Fluoro Time 0.5 minutes 0.5 minutes 0 minutes Air kerma at the reference point (Ka,r) 1 mGy 1 mGy 0 mGy DLP 1,203 mGycm 1,203 mGycm 0 mGycm
== END 2025-01-12 10:28 | disposition home or self-care (01) ==
PROVIDERS: PCP Family Medicine; Visit Provider Internal Medicine
DX: M43.8X4 Other specified deforming dorsopathies, thoracic region (principal); M47.817 Spondylosis without myelopathy or radiculopathy, lumbosacral region; R63.4 Abnormal weight loss; M81.0 Age-related osteoporosis without current pathological fracture; E87.5 Hyperkalemia; E83.52 Hypercalcemia; M47.816 Spondylosis without myelopathy or radiculopathy, lumbar region
CPT/HCPCS: 72070; 72100

== ENCOUNTER 2025-02-24 14:21 | Outpatient (CLI) | payer MEDICARE, OTHER, SELFPAY ==
--- NOTE | ~2025-02-24 | XR_ITS ---
COMPLETE BONE SURVEY Ordering provider: Med Delatorre MD History: 69 years Female with . plasma cell disorder . Comparison: FINDINGS: Standard bone survey for multiple myeloma was performed with images of the spine, lower and upper extremities as well as the chest and skull. BONES: No bony lytic or sclerotic lesions of the imaged osseous structures are identified. JOINT SPACES: Well maintained. SOFT TISSUES: Atherosclerotic changes of the aorta. Right Port-A-Cath with the tip overlying superior vena cava is noted. Emphysematous changes of the trang ngs. Multilevel degenerative disc disease in the thoracic area. IMPRESSION: 1. No radiographic findings of multiple myeloma. 2. Chronic findings as discussed above. Reviewed, dictated and finalized at location A.
== END 2025-02-24 14:22 | disposition home or self-care (01) ==
PROVIDERS: PCP Family Medicine; Visit Provider Internal Medicine Hematology & Oncology
DX: I70.0 Atherosclerosis of aorta (principal); D72.9 Disorder of white blood cells, unspecified; M51.34 Other intervertebral disc degeneration, thoracic region; Z45.2 Encounter for adjustment and management of vascular access device
CPT/HCPCS: 77075